=== PATIENT | female | born 1995 | race Caucasian/White ===

== ENCOUNTER 2020-04-10 11:22 | Outpatient (REF) | payer MEDICARE, MEDICAID, SELFPAY ==
[2020-04-11 12:32] LABS: BV Int Neg Control Negative (Negative); BV Int Pos Control Positive (Positive)
== END 2020-04-10 11:23 | disposition home or self-care (01) ==
LOC: HO.LNP 11:22
PROVIDERS: Visit Provider Obstetrics & Gynecology
DX: Z01.411 Encounter for gynecological examination (general) (routine) with abnormal findings (principal); N76.0 Acute vaginitis
CPT/HCPCS: 87480; 87510; 87660; 99203; 99204

== ENCOUNTER → 2020-07-07 14:51 | Outpatient (BNVA) | payer MEDICARE, MEDICAID, SELFPAY | PROVIDERS: PCP Physician Assistant Medical; Visit Provider Obstetrics & Gynecology | DX: Z30.42 Encounter for surveillance of injectable contraceptive (principal) | CPT/HCPCS: 96372; J1050 ==

== ENCOUNTER → 2020-09-23 14:48 | Outpatient (BNVA) | payer MEDICARE, MEDICAID, SELFPAY | PROVIDERS: PCP Nurse Practitioner Family; Visit Provider Advanced Practice Midwife | DX: Z13.89 Encounter for screening for other disorder (principal) | CPT/HCPCS: 99212 ==

== ENCOUNTER → 2020-12-09 15:09 | Outpatient (BNVA) | payer MEDICARE, MEDICAID, SELFPAY | PROVIDERS: PCP Nurse Practitioner Family; Visit Provider Advanced Practice Midwife | DX: Z30.42 Encounter for surveillance of injectable contraceptive (principal); Z13.29 Encounter for screening for other suspected endocrine disorder; Z13.1 Encounter for screening for diabetes mellitus; G43.009 Migraine without aura, not intractable, without status migrainosus; I10 Essential (primary) hypertension; F17.200 Nicotine dependence, unspecified, uncomplicated | CPT/HCPCS: 96372; 99211 ==

== ENCOUNTER 2021-02-20 08:01 | Outpatient (REF) | payer MEDICARE, MEDICAID, SELFPAY ==
[2021-02-20 08:59] LABS: Hematocrit 39.6 % (37-47); Hemoglobin 13.2 g/dl (12.0-16.0); Mean Corpuscular HGB Conc 33.3 g/dl (31.0-35.0); Mean Corpuscular Hemoglobin 30.9 pg (27.0-33.0); Mean Corpuscular Volume 92.7 fL (80-98); Mean Platelet Volume 10.3 fL (9.4-12.3); Platelet Count 300 X10*3/uL (160-400); Red Blood Count 4.27 X10*6/uL (4.20-5.50); Red Cell Distribution Width 13.4 % (11.0-16.0); White Blood Count 8.2 X10*3/uL (4.8-10.8)
[2021-02-20 09:20] LABS: Estimated Average Glucose 100 mg/dL; Hemoglobin A1c % 5.1 %
[2021-02-20 09:26] LABS: Alanine Aminotransferase 17 U/L (0-31); Albumin Level 4.3 g/dL (3.5-5.0); Alkaline Phosphatase 97 U/L (39-117); Anion Gap 13 (12-20); Aspartate Amino Transferase 12 U/L (5-31); Bilirubin Total 0.4 mg/dL (0.0-1.0); Blood Urea Nitrogen 13 mg/dL (9-16); Calcium 9.7 mg/dL (8.4-10.2); Carbon Dioxide 22 mmol/L (22-29); Chloride 111 mmol/L (96-108); Estimated Glomerular Filt Rate > 60; Glucose Fasting 84 mg/dL (60-99); Potassium 4.7 mmol/L (3.3-5.1); Sodium 141 mmol/L (135-145); Total Protein 6.9 g/dL (6.5-8.0)
[2021-02-20 09:50] LABS: TSH reflex Free T4 1.12 uIU/mL (0.32-4.0)
== END 2021-02-20 08:02 | disposition home or self-care (01) ==
LOC: HO.LAB 08:01
PROVIDERS: PCP Physician Assistant; Visit Provider Physician Assistant
DX: I10 Essential (primary) hypertension (principal); Z13.29 Encounter for screening for other suspected endocrine disorder; Z13.1 Encounter for screening for diabetes mellitus; F17.200 Nicotine dependence, unspecified, uncomplicated
CPT/HCPCS: 36415; 80053; 83036; 84443; 85027

== ENCOUNTER → 2021-03-02 14:36 | Outpatient (BNVA) | payer MEDICARE, MEDICAID, SELFPAY | PROVIDERS: PCP Physician Assistant; Visit Provider Advanced Practice Midwife | DX: Z30.41 Encounter for surveillance of contraceptive pills (principal) | CPT/HCPCS: 96372; 99211 ==

== ENCOUNTER → 2021-05-25 15:06 | Outpatient (BNVA) | payer MEDICARE, MEDICAID, SELFPAY | PROVIDERS: PCP Physician Assistant; Visit Provider Advanced Practice Midwife | DX: Z30.42 Encounter for surveillance of injectable contraceptive (principal) | CPT/HCPCS: 96372; 99211 ==

== ENCOUNTER 2021-06-25 15:00 | Outpatient (REF) | payer MEDICARE, MEDICAID, SELFPAY ==
[2021-06-27 11:40] LABS: CT PCR NOT DETECTED (Not Detect.); NG PCR NOT DETECTED (Not Detect.)
== END 2021-06-25 15:01 | disposition home or self-care (01) ==
LOC: HO.LAB 15:00
PROVIDERS: Visit Provider Advanced Practice Midwife
DX: Z01.419 Encounter for gynecological examination (general) (routine) without abnormal findings (principal); Z20.2 Contact with and (suspected) exposure to infections with a predominantly sexual mode of transmission; F17.200 Nicotine dependence, unspecified, uncomplicated; Z71.6 Tobacco abuse counseling
CPT/HCPCS: 87491; 87591; 88142

== ENCOUNTER → 2021-08-17 14:57 | Outpatient (BNVA) | payer MEDICARE, MEDICAID, SELFPAY | PROVIDERS: Visit Provider Advanced Practice Midwife | DX: Z30.42 Encounter for surveillance of injectable contraceptive (principal) | CPT/HCPCS: 96372; 99211 ==

== ENCOUNTER → 2021-11-08 14:57 | Outpatient (BNVA) | payer MEDICARE, MEDICAID, SELFPAY | PROVIDERS: PCP Physician Assistant; Visit Provider Advanced Practice Midwife | DX: Z30.42 Encounter for surveillance of injectable contraceptive (principal) | CPT/HCPCS: 96372; 99211 ==

== ENCOUNTER → 2022-01-31 15:03 | Outpatient (BNVA) | payer MEDICARE, MEDICAID, SELFPAY | PROVIDERS: PCP Physician Assistant; Visit Provider Advanced Practice Midwife | DX: Z30.42 Encounter for surveillance of injectable contraceptive (principal) | CPT/HCPCS: 96372; 99211 ==

== ENCOUNTER → 2022-04-29 14:51 | Outpatient (BNVA) | payer MEDICARE, MEDICAID, SELFPAY | PROVIDERS: PCP Physician Assistant; Visit Provider Advanced Practice Midwife | DX: Z30.42 Encounter for surveillance of injectable contraceptive (principal) | CPT/HCPCS: 96372; 99211 ==

== ENCOUNTER → 2022-07-27 14:42 | Outpatient (BNVA) | payer MEDICARE, MEDICAID, SELFPAY | PROVIDERS: PCP Physician Assistant; Visit Provider Advanced Practice Midwife | DX: Z30.42 Encounter for surveillance of injectable contraceptive (principal) | CPT/HCPCS: 96372; 99211 ==

== ENCOUNTER → 2022-10-26 14:55 | Outpatient (BNVA) | payer MEDICARE, MEDICAID, SELFPAY | PROVIDERS: PCP Physician Assistant; Visit Provider Advanced Practice Midwife | DX: Z30.09 Encounter for other general counseling and advice on contraception (principal); Z72.0 Tobacco use | CPT/HCPCS: 99212 ==

== ENCOUNTER 2023-03-29 11:14 | Outpatient (AMB) | payer MEDICARE, MEDICAID, SELFPAY ==
--- NOTE | 2023-03-29 11:16 | A.OFFVIS_ITS ---
Intake Vital Signs 03/29/23 11:17 Height 5 ft 9 in Weight 241 lb BMI 35.6 BP 122/80 Intake Visit Reasons: Control Consult Intake Note: The patient agreed to use of a medical office asst during this encounter. Scribed for NELLY Mobley by Eda Lujan, medical office asst, on 03/29/2023 at 11:30 am EST. Accompanied by: Other Relationship Allergies No Known Drug Allergies Allergy (Unknown, Verified 03/29/23 11:20) Unknown HPI HPI Comments History of Present Illness Details She is here for BC surveillance with Slime, her adult foster mother. Reports she is doing well on Velvet, was late for her follow up appointment and needed a refill. She denies any contraindications to control such as: migraines with aura, history of DVT or pulmonary emboli, high blood pressure, liver disease, thrombolic disorders, Lupus, +ARIEL, or smoking. Reports migraines with out aura; states generic pain relievers does not work but uses Rx.Recently in the ED for a migraine attack. [facility] Medical History (Updated 03/29/23 @ 11:44 by Eda Lujan) Migraine without aura Annual physical exam Insomnia due to mental condition History of recurrent UTIs Bipolar disorder ADHD Surgical History Hx of tooth extraction Family History Father No problems noted. Mother Breast cancer Diabetes Social History Alcohol intake: current Alcohol intake frequency: holidays/special occasions only Patient Tobacco Use Status: Current everyday Tobacco user Tobacco use type: Cigarette Cigarettes Per Day: 3.5 Years Smoked: 5 e-Cigarette/Vaping Use: Never Used Current occupational status: employed Current occupation: [employer]- Female Reproductive History Menstrual Age of Menarche: 13 Physical Exam Vital Signs: Last Vital Signs BP 122/80 03/29/23 11:17 BMI result Body Mass Index 35.6 Const General: cooperative, healthy appearing, comfortable, no acute distress, well developed, alert and awake Assessment & Plan Assessment & Plan (1) Contraceptive surveillance: Code(s): Z30.40 - Encounter for surveillance of contraceptives, unspecified Plan: Discussed: Reviewed use, side effects and warning of OCP, including ACHES. Continue Velvet. Rx for Velvet sent to pharmacy. Encouraged to always use condoms for back up method and STD prevention. She was instructed to go to ER if she develops loss of vision, severe headache that does not resolve, chest pain, difficulty breathing, abdominal pain, or pain or tenderness in extremity. Call the office with any concerns. All of her questions and concerns were addressed to the best of my ability and shared decision making. She is agreeable to plan of care. Return in 3-4 months for pill check/AG. (2) Migraine without aura: Code(s): G43.009 - Migraine without aura, not intractable, without status migrainosus Medications: Refilled norethindrone (contraceptive) (Velvet) 0.35 mg PO DAILY 84 tabs 1RF Coding Level of Care Code Est Pt Level 3 (57368) Diagnoses control counseling Z30.09 Migraine without aura G43.009
[2023-03-29 11:17] VITALS: BP 122/80; BMI 35.6
== END 2023-03-29 11:43 | disposition home or self-care (01) ==
PROVIDERS: PCP Physician Assistant; Visit Provider Advanced Practice Midwife
DX: Z30.09 Encounter for other general counseling and advice on contraception (principal); G43.009 Migraine without aura, not intractable, without status migrainosus
CPT/HCPCS: 99213

== ENCOUNTER → 2023-03-29 11:14 | Outpatient (BNVA) | payer MEDICARE, MEDICAID, SELFPAY | PROVIDERS: PCP Physician Assistant; Visit Provider Advanced Practice Midwife | DX: Z30.09 Encounter for other general counseling and advice on contraception (principal); G43.009 Migraine without aura, not intractable, without status migrainosus | CPT/HCPCS: 99212 ==

== ENCOUNTER 2023-05-04 15:49 | Outpatient (AMB) | payer MEDICARE, MEDICAID, SELFPAY ==
--- NOTE | 2023-05-04 15:50 | A.OFFPC_ITS ---
Vital Signs 05/04/23 15:52 Height 5 ft 9 in Weight 230 lb 4 oz BMI 34.0 BP 132/70 Blood Pressure Location Rt brachial Position Sitting Pulse 98 Pulse Source Pulse Oximeter Pulse Oximetry (%) 96 Oxygen Delivery Method Room Air Intake Visit Reasons: Annual physical Intake Note: Patient is here today for a physical. Automatic Grinding Machine Operator Required: No Helpdesk Specialist: Present Accompanied by: Mother Allergies No Known Drug Allergies Allergy (Unknown, Verified 05/04/23 16:13) Unknown Medication List - Last Reconciled 05/04/23 by Christian Patiño PA-C acetaminophen 325 mg PO QID PRN fhvobfu-meapxjyrlxryx-kivraltp 250-250-65 mg (Pain Reliever Plus) 1 tab PO Q4-6H PRN 5 days yzkgkudnhm-fladgdkyfyqxa-tpdw 50-325-40 mg 1 tab PO Q6H PRN 2 days citalopram (Celexa) 40 mg PO DAILY clonidine HCl 0.1 mg PO DAILY PRN dextroamphetamine-amphetamine 15 mg (Adderall) 20 mg PO DAILY diphenhydramine HCl (Banophen) 25 mg PO DIRECTED 90 days fluticasone propionate 50 mcg/actuation (Flonase Allergy Relief) 1 spray intranasal DAILY 30 days hydroxyzine HCl 50 mg PO ONCE ipratropium bromide 2 sprays intranasal BID 15 days loratadine 10 mg PO DAILY 90 days melatonin 5 mg PO DAILY norethindrone (contraceptive) (Velvet) 0.35 mg PO DAILY promethazine 25 mg PO BID PRN 5 days riboflavin (vitamin B2) (Vitamin B-2) 100 mg PO DAILY 90 days sumatriptan succinate 50 mg PO ONCE PRN 10 days trazodone 25 mg PO BEDTIME Tobacco use date assessed: 05/04/23 Dental Screening Dental Screen Date: 05/04/23 Did you have a dental visit in the last 12 months?: Yes Did you have a dental problem in the last 6 months where you did not have access to dental care?: No Was dental information given to patient?: Patient has dentist HPI Annual physical HPI Details Patient is a 27-year-old female here today for PE.? Patient has past medical history significant for anxiety depression, obesity, allergic rhinitis,migraines, ADHD, Bipolar disorder,? asthma. . Allergies:? Has been fairly well controlled with use Benadryl nightly.? She reports she still has nasal congestion itchy eyes at times.. .. Asthma: Has been well controlled with only p.r.n. use of her albuterol inhaler. Has been controlling her allergies. She denies any nighttime awakenings with asthma symptoms are recent asthma exacerbations. .. Bipolar disorder, ADHD:? Patient is followed by mental therapist and a psychiatrist who prescribes her mental health medications.? Continues on stimulant ADHD medication and seem still hyperactive. She is considering changing her psychiatrist as they will increase stimulant medication. Smoker: Patient does understand she needs to quit smoking and has been reducing her smoking now only smokes 3 cigarettes per day. Offer nicotine replacement though she declines my offers. .. Obesity: HAS LOST A SIGNIFICANT AMOUNT OF WEIGHT SINCE LAST VISIT BY BEING MORE PHYSICALLY ACTIVE AND REDUCING SUGAR IN HER DIET. Also now off of Depo injections ... Migraines: She reports her migraines are still evident and has 1 bad migraine a month. She does use Fioricet which she has found to be very helpful. Imitrex was not so helpful. Cell Tender Helper: Patient is followed by Executive Creative Director and has gotten Pap. Vaccine: Up-to-date with flu, UTD with COVID vaccine , up-to-date with Tdap, needs pneumonia vaccine PFSH Medical History Migraine without aura Annual physical exam Insomnia due to mental condition History of recurrent UTIs Bipolar disorder ADHD Surgical History Hx of tooth extraction Family History Father No problems noted. 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 needs: No Hearing needs: No Vision needs: Yes (Glasses) Female Reproductive History Menstrual Age of Menarche: 13 Questionnaire PHQ-9 Over the last 2 weeks, how often have you been bothered by any of the following problems? 1. Little interest or pleasure in doing things: not at all 2. Feeling down, depressed, or hopeless: not at all 3. Trouble falling or staying asleep, or sleeping too much: not at all 4. Feeling tired or having little energy: not at all 5. Poor appetite or overeating: not at all 6. Feeling bad about yourself - or that you are a failure or have let yourself or your family down: not at all 7. Trouble concentrating on things, such as reading the newspaper or watching television: not at all 8. Moving or speaking so slowly that other people could have noticed. Or the opposite - being so fidgety or restless that you have been moving around a lot more than usual: not at all 9. Thoughts that you would be better off or of hurting yourself in some way: not at all Total score: 0 Depression Screening Interpretation: Negative Depression Screening Done: Yes 21040 - PHQ-9 Billing: Yes Source: Developed by Drs. Leland Marcos, Ginger Smallwood, Cameron Fontanez and colleagues, with an educational shahnaz from [employer]. Thrive Questionnaire Date Thrive assessed: 05/04/23 I am a: Patient What is your living situation today?: I have a steady place to live Within the past 12 months, did the food you bought not last and you didn't have the money to get more?: Never true Within the past 12 months, did you worry whether your food would run out before you got money to buy more?: Never true Do you have trouble paying for medicines?: No Do you have trouble getting transportation to medical appointments?: No Do you have trouble paying your heating and electricity bill?: No Do you have trouble taking care of your child, family member or friend?: No Do you have trouble with day-to-day activities such as bathing, preparing meals, shopping, managing finances, etc.?: No Are you currently unemployed and looking for a job?: No Are you interested in more education?: No Currently or been in a relationship where the following occur: no concerns reported AUDIT C Alcohol Use Questionnaire (AUDIT-C) 1. How often do you have a drink containing alcohol?: Monthly or less 2. How many drinks containing alcohol do you have on a typical day when you are drinking?: 1 or 2 Total Score: 1 JYOTI-7 AMB Questionnaire JYOTI-7 Date JYOTI - 7 assessed: 05/04/23 Feeling nervous, anxious, or on edge: 0 = Not at all Not being able to stop or control worryin = Not at all Worrying too much about different things: 0 = Not at all Trouble relaxin = Not at all Being so restless that it is hard to sit still: 0 = Not at all Becoming easily annoyed or irritable: 0 = Not at all Feeling afraid as if something awful might happen: 0 = Not at all Total JYOTI-7 score (0-4 normal; 5-9 mild; 10-14 moderate; 15-21 severe): 0 Source: Developed by Drs. Leland Marcos, Ginger Smallwood, Cameron Fontanez and colleagues, with an educational shahnaz from [employer]. JYOTI-7 Assessment Billing JYOTI-7 Assessment Tool: JYOTI-7 Assessment 90510 Review of Systems Const Denies body aches, Denies chills, Denies excessive sweating, Denies fatigue, Denies fever(s) and Reports headache(s) Eyes Denies blurry vision ENT Denies dysphagia, Denies vertigo, Denies dizziness, Reports headache(s), Denies hearing loss and Denies tinnitus Card Denies chest pain, Denies chest pain with activity, Denies syncope, Denies irregular heart rhythm and Denies dyspnea Resp Denies chest congestion, Denies cough, Denies hemoptysis, Denies dyspnea and Denies wheezing GI Denies abdominal pain, Denies melena, Denies hematochezia, Denies coffee ground emesis, Denies dysphagia, Denies diarrhea, Denies nausea and Denies vomiting Denies urinary frequency, Denies dysuria, Denies urinary hesitancy and Denies urinary urgency Musc Denies arthralgias, Denies limited range of motion, Denies muscle cramps and Denies muscle weakness Skin/Breast Denies rash and Denies skin ulcer Neuro Denies Abnormal speech present, Denies confusion, Denies vertigo, Denies dizziness, Denies syncope, Reports headache(s), Denies memory loss and Denies seizure-like activity Psych Denies anxiety, Denies confusion, Denies depression, Denies memory loss, Denies panic attacks and Denies paranoia Endo Denies excessive sweating, Denies fatigue, Denies flushing, Denies polydipsia and Denies polyuria Aller/Immun Denies wheezing Physical exam (Primary Care) Vital Signs: Last Vital Signs Pulse 98 05/04/23 15:52 BP 132/70 05/04/23 15:52 Pulse Ox 96 05/04/23 15:52 Oxygen Delivery Method Room Air 05/04/23 15:52 BMI result Body Mass Index 34.0 BMI Assessment/Plan discussion: High Tobacco/Smoking Status: Tobacco use Status Tobacco use date assessed 05/04/23 05/04/23 16:01 Patient Tobacco Use Status Current everyday Tobacco 05/04/23 16:23 Tobacco use type Cigarette 05/04/23 16:23 e-Cigarette/Vaping Use Never Used 05/04/23 16:23 Are you ready to quit: No Tobacco cessation counseling provided: Yes Items discussed: Nicotine replacement and QuitWorks Relapse Prevention: discussed the importance of a supportive environment, weight gain after smoking is common and discussed dietary, exercise and/or lifestyle changes Number of minutes spent counselin CPT code: 86707 - 4-10 Minutes PHQ-9: PHQ-9 Score PHQ-9: Total score 0 05/04/23 16:41 Depression Screening Interpretation: Negative Thrive Assessment: Date of Thrive Assessment Date Thrive assessed 05/04/23 05/04/23 16:01 Currently or been in a relationship where the following occur: no concerns reported Const Other: OBESE General: cooperative, comfortable, no acute distress, alert and awake; No confusion Orientation/consciousness: oriented to person, oriented to place, patient oriented x3 and No confusion HENMT Head: Yes normocephalic Ears: external ears normal and TM's normal bilaterally Face and sinus: No sinus tenderness Mouth: Normal oral and palatal mucosa present and tongue normal Teeth and gingiva: dentition normal and gingiva normal Throat: Yes posterior oropharynx normal, Yes tonsils normal and Yes uvula midline Eyes Conjunctivae: conjunctivae normal Sclerae: sclerae normal Pupils: Equal, round and reactive pupils present EOM: EOMs intact bilaterally Direct Ophthalmoscopy: No no photophobia Neck Neck: Yes no lymphadenopathy, No tender and Yes no JVD Thyroid: Thyroid normal Carotids: no bruits Chest Chest palpation & inspection: no tenderness Resp Effort & Inspection: normal respiratory effort, no audible wheezes, not labored and no stridor Auscultation: no crackles, no rales, no rhonchi and no wheezes Cardio Jugular venous distension: no JVD Rate: regular rate, not bradycardic and not tachycardic Rhythm: regular rhythm Bruits: no carotid bruits Peripheral pulses: Peripheral pulses 2+ throughout GI Inspection: Yes normal to inspection, No abdominal wall ecchymosis and No visible herniation Palpation (GI): Soft to palpation, nontender, no guarding, not rigid and No hepatosplenomegaly present Auscultation: normoactive bowel sounds General: Yes no CVA tenderness Back/Spine/Pelvis Back: no CVA tenderness and No back tenderness Cervical Spine: cervical ROM normal Thoracic/Lumbar Spine: thoracic and lumbar spine normal to inspection, straight leg raise negative bilaterally, No thoraco-lumbar ROM limited and No lumbar spinal tenderness Skin Lesions: no lesions Rashes: no rashes Wounds: no wounds Neuro General: oriented to person, oriented to place, patient oriented x3, CN's II-XI intact bilaterally and No confusion Cranial nerves: Yes Equal, round and reactive pupils present and Yes Normal accommodation reflex present Cognition (Neuro): normal cognition Speech: No Abnormal speech present Gait exam (Neuro): Normal gait present Motor exam (neuro): 5/5 motor strength present throughout Extrem Right upper extremity: full ROM; no cyanosis Left upper extremity: full ROM; no cyanosis Right lower extremity: no edema Left lower extremity: no edema Psych Appearance: grossly normal Mental Status: mental status grossly normal Affect: normal affect Attitude: cooperative Thought process: Normal thought process present Office Procedures Flu Questionnaire Does the patient have a severe egg allergy?: No Does the patient have severe life threatening allergies?: No Does the patient have a fever or illness today?: No Has the patient ever had Guillain-[place] Syndrome?: No Has the patient ever had any past reaction to a flu shot?: No Immunizations flu vacc [id number] 6mos up(PF) 60 mcg(15 mcgx4)/0.5 mL IM syringe Performing Provider: Christian Patiño PA-C Performing Location: [facility] Administered by: JANET Johnson on 05/04/23 16:02 Dose Route Admin Location Dispensed Lot Number Expiration Date NDC Route Delivery Supervisor 0.5 mL IM Left Deltoid 0.5 mL [id number] 01/07/24 58615-993-05 GSK-ID BIOMEDZentyal VIS Given Date VIS Provided VIS Publication Date 05/04/23 Single Vaccine 21 Eligibility Eligibility Date Funding Source Not VFC Eligible 05/04/23 Private pneumoc 20-paul conj-dip cr(PF) 0.5 mL IM syringe Performing Provider: Christian Patiño PA-C Performing Location: [facility] Administered by: JANET Leonard on 05/04/23 16:41 Dose Route Admin Location Dispensed Lot Number Expiration Date ND Route Delivery Supervisor 0.5 mL IM Left Deltoid 0.5 mL [id number] 02/06/24 5224-3101-04 WYETH/PFIZER VIS Given Date VIS Provided VIS Publication Date 05/04/23 Single Vaccine 21 Eligibility Eligibility Date Funding Source Not VFC Eligible 05/04/23 Private Assessment and Plan Assessment & Plan (1) Annual physical exam: Code(s): Z00.00 - Encounter for general adult medical examination without abnormal findings (2) Annual physical exam: Code(s): Z00.00 - Encounter for general adult medical examination without abnormal findings (3) ADHD: Code(s): F90.9 - Attention-deficit hyperactivity disorder, unspecified type Qualifiers: Attention deficit-hyperactivity disorder type: unspecified Qualified Code(s): F90.9 - Attention-deficit hyperactivity disorder, unspecified type Plan: Patient currently living in foster care. Here today with her new foster mother. She has a long history of mental health disorders including bipolar disorder and ADHD. Is seeing new psychiatrist whom is managing her mental health medications. (4) Smoker: Code(s): F17.200 - Nicotine dependence, unspecified, uncomplicated Plan: Pain patient does understand she needs to quit smoking and will like to continue reducing her cigarettes on her own. Declining offers to start nicotine replacement therapy (5) Obese: Code(s): E66.9 - Obesity, unspecified Qualifiers: Body mass index: BMI 31.0-31.9 Obesity classification: adult class 1 (BMI 30 - 34.9) Obesity type: due to excess calories Serious obesity comorbidity presence: without serious comorbidity Qualified Code(s): E66.09 - Other obesity due to excess calories; Z68.31 - Body mass index [BMI] 31.0-31.9, adult Plan: Patient does understand her BMI is above 30 will continue to work on lifestyle to reduce her weight. (6) Migraine without aura: Code(s): G43.009 - Migraine without aura, not intractable, without status migrainosus Qualifiers: Intractability: not intractable Status migrainosus presence: without status migrainosus Qualified Code(s): G43.009 - Migraine without aura, not intractable, without status migrainosus Plan: She reports having frequent mild headaches. She does report 1 major migraine a month. She reports that Fioricet is helpful. Imitrex not helpful She would like to see a neurologist for possible evaluation on injectable therapy. Orders: Orders Comprehensive [place]. Panel Fast 05/04/23 Z13.1 - Encounter for screening for diabetes mellitus Complete Blood Count no Diff 05/04/23 Z13.1 - Encounter for screening for diabetes mellitus Pneumococcal 20 Immunization 05/04/23 G43.009 - Migraine without aura, not intractable, without status migrainosus, Z23 - Encounter for immunization Influenza [id number] Immunization 05/04/23 Z23 - Encounter for immunization Referrals Neurology Referral G43.009 - Migraine without aura, not intractable, without status migrainosus Medications: Changed From qrvgoorynt-rzvgeaschiqgu-onwa 50-325-40 mg 1 tab PO Q6H 2 days PRN 8 tabs 0RF pain G43.009 - Migraine without aura, not intractable, without status migrainosus To vhlbgcwqdk-tejppmlcsgcdr-jjxw 50-325-40 mg 1 tab PO Q6H PRN 20 tabs 0RF pain 5 days G43.009 - Migraine without aura, not intractable, without status migraino kilo Discontinued uawodes-hcsgqbuiliajf-bdnehxai 250-250-65 mg (Pain Reliever Plus) Discontinued Reason: Doctor's Order 1 tab PO Q4-6H 5 days PRN 30 tabs 1RF pain G43.009 - Migraine without aura, not intractable, without status migrainosus sumatriptan succinate Discontinued Reason: Doctor's Order 50 mg PO ONCE 10 days PRN 10 tabs 0RF migraine headache G43.009 - Migraine without aura, not intractable, without status migrainosus Coding Level of Care Code Est Pt Prev Care 18-39y(36543) Diagnoses Annual physical exam Z00.00 Attention deficit hyperactivity disorder (ADHD), unspecified ADHD type F90.9 Attention deficit-hyperactivity disorder type: unspecified Smoker F17.200 Class 1 obesity due to excess calories without serious comorbidity with body mass index (BMI) of 31.0 to 31.9 in adult E66.09; Z68.31 Body mass index: BMI 31.0-31.9 Obesity classification: adult class 1 (BMI 30 - 34.9) Obesity type: due to excess calories Serious obesity comorbidity presence: without serious comorbidity Migraine without aura and without status migrainosus, not intractable G43.009 Intractability: not intractable Status migrainosus presence: without status migrainosus Additional Codes Vital Signs *Quality* - CPT code: 62714 - 4-10 Minutes ([id number]) JYOTI-7 Assessment Billing - JYOTI-7 Assessment Tool: JYOTI-7 Assessment 13590 ([id number])
[2023-05-04 15:52] VITALS: BP 132/70; PULSE 98; O2SAT 96; BMI 34.0
== END 2023-05-04 16:42 | disposition home or self-care (01) ==
PROVIDERS: Visit Provider Physician Assistant
DX: Z23 Encounter for immunization (principal); G43.009 Migraine without aura, not intractable, without status migrainosus
CPT/HCPCS: 90471; 90677; 90686; 99395

== ENCOUNTER 2023-07-20 10:06 | Outpatient (REF) | payer MEDICARE, MEDICAID, SELFPAY | END 2023-07-20 10:07 | disposition home or self-care (01) | LOC: HO.LNP 10:06 | PROVIDERS: PCP Physician Assistant; Visit Provider Advanced Practice Midwife | DX: Z13.89 Encounter for screening for other disorder (principal) | CPT/HCPCS: 88142 ==

== ENCOUNTER 2023-07-20 10:06 | Outpatient (AMB) | payer MEDICARE, MEDICAID, SELFPAY ==
--- NOTE | 2023-07-20 10:09 | MHC.OFFVIS ---
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 Dishing Machine Operator Required: No Information Interpreted: non-clinical & clinical Investigative Research Specialist: Investigative Research Specialist Present (Jose Luis) Allergies No Known Drug Allergies Allergy (Unknown, Verified 07/20/23 10:20) Unknown Is last menstrual period known: Yes Last menstrual period: 06/30/23 Post menopausal: No HPI HPI Comments History of Present Illness Details She is a premenopausal woman presenting for annual examination. Doing well with no concerns. Doing well on Velvet. She tries to eat healthy and stays active with exercise. Currently is sexually active. She denies vaginal itching and irritation. STI screening offered; she accepts. She denies any contraindications to control such as: migraines with aura, history of DVT or pulmonary emboli, high blood pressure, liver disease, thrombolic disorders, Lupus, +ARIEL, breast cancer, or smoking. Denies family history of ovarian or colon cancer. FH-breast cancer, mother. Last pap smear 2020, negative. [facility] Medical History Migraine without aura Annual physical exam Insomnia due to mental condition History of recurrent UTIs Bipolar disorder ADHD Surgical History Hx of tooth extraction Family History Father No problems noted. 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 needs: No Hearing needs: No Vision needs: Yes (Glasses) Female Reproductive History Menstrual Age of Menarche: 13 Duration of menses: 3-5 days Date of last menstrual period: 06/30/23 control method: pills Total pregnancies: 0 Date of last pap smear: 06/28/21 (negative) Review of Systems Const All systems reviewed & are unremarkable except as noted in HPI and below Reports as per HPI Eyes Reports no additional complaints ENT Reports no additional complaints Card Reports no additional complaints Resp Reports no additional complaints GI Reports as per HPI and Reports no additional complaints Reports as per HPI Musc Reports no additional complaints Skin/Breast Reports as per HPI Neuro Reports no additional complaints Psych Reports no additional complaints Endo Reports no additional complaints Oziel/Lymph Reports no additional complaints Aller/Immun Reports no additional complaints Physical Exam Vital Signs: Last Vital Signs BP 114/64 07/20/23 10:12 BMI result Body Mass Index 32.2 Const General: cooperative, healthy appearing, no acute distress, well developed and alert Orientation/consciousness: patient oriented x3 HEENT Head: Yes normal to inspection Eyes General: appearance normal, both eyes and all related structures Neck Neck: Yes normal visual inspection Thyroid: Thyroid normal Chest Chest palpation & inspection: normal inspection of the chest and other (no puckering, dimpling, peau de orange, retraction, discharge, masses) Breast/axilla inspection: normal inspection of the breasts Breast/axilla palpation: normal palpation of the breasts Resp Effort & Inspection: normal respiratory effort GI Inspection: Yes normal to inspection Palpation (GI): Soft to palpation Rectal Exam - Female: deferred General: Yes bladder normal to palpation External Female Exam: normal external appearance and normal appearance of the urethra Speculum Exam - Vagina: normal appearance of the vagina, normal palpation and normal vaginal discharge Speculum Exam - Cervix: normal appearance of the cervix and normal palpation Bimanual exam- vagina & uterus: normal bimanual exam, normal palpation, uterine size normal, bladder normal to palpation, normal palpation and non-tender Bimanual Exam- Adnexa, other: no masses Skin General skin exam: no rashes or lesions noted Rashes: no rashes Neuro General: patient oriented x3 Cognition (Neuro): normal cognition Extrem General: Yes normal to inspection Psych Attitude: cooperative Thought process: Normal thought process present Assessment & Plan Assessment & Plan (1) Encounter for well woman exam with routine gynecological exam: Code(s): Z01.419 - Encounter for gynecological examination (general) (routine) without abnormal findings Plan Discussed: Current recommendations for pap smears per ASCCP guidelines. Breast awareness and periodic breast exams. Maintain a healthy lifestyle including a well balanced diet and routine exercise. Use condoms for STI and prevention. control hormone use warnings: go to ER if and loss of vision, blindness, severe headache, chest pain or difficulty breathing, severe abdominal pain, or any pain or swelling in an extremity. All of her questions and concerns were addressed to the best of my ability. RTO in one year for annual automotive project engineer examination. This note is constructed using voice recognition software. While every effort has been made to ensure accuracy, folder tier errors may have been included. Orders: Orders Hepatitis C Antibody Today Z20.2 - Contact with and (suspected) exposure to infections with a predominantly sexual mode of transmission Syphilis Screen Today Z20.2 - Contact with and (suspected) exposure to infections with a predominantly sexual mode of transmission HIV Ab/Ag Today Z20.2 - Contact with and (suspected) exposure to infections with a predominantly sexual mode of transmission Hepatitis B Core Antibody Today Z20.2 - Contact with and (suspected) exposure to infections with a predominantly sexual mode of transmission Medications: Refilled norethindrone (contraceptive) (Velvet) 0.35 mg PO DAILY 84 tabs 4RF Coding Level of Care Code Est Pt Prev Care 18-39y(21695) Diagnoses Encounter for well woman exam with routine gynecological exam Z01.419
[2023-07-20 10:12] VITALS: BP 114/64; BMI 32.2
== END 2023-07-20 10:43 | disposition home or self-care (01) ==
LOC: HO.HWS 10:06
PROVIDERS: PCP Physician Assistant; Visit Provider Advanced Practice Midwife
DX: Z01.419 Encounter for gynecological examination (general) (routine) without abnormal findings (principal)
CPT/HCPCS: G0101

== ENCOUNTER 2023-07-20 10:56 | Outpatient (REF) | payer MEDICARE, MEDICAID, SELFPAY ==
[2023-07-20 13:03] LABS: HBc Num1 0.04 S/CO (0.00-0.79); HIV AB/AG Nonreactive (Nonreactive); HIV Num 1 0.97 S/CO (0.00-0.99); Hepatitis B Core Antibody Nonreactive (Nonreactive); Syphilis Screen Nonreactive (Nonreactive); ~HepC Num1 0.08 S/CO (0.00-0.79); ~Hepatitis C Antibody Nonreactive (Nonreactive)
[2023-07-20 15:38] LABS: CT PCR NOT DETECTED (Not Detect.); NG PCR NOT DETECTED (Not Detect.)
== END 2023-07-20 10:57 | disposition home or self-care (01) ==
LOC: HO.LAB 10:56
PROVIDERS: PCP Physician Assistant; Visit Provider Advanced Practice Midwife
DX: Z20.2 Contact with and (suspected) exposure to infections with a predominantly sexual mode of transmission (principal); Z12.4 Encounter for screening for malignant neoplasm of cervix
CPT/HCPCS: 0353U; 86704; 86780; 86803; 87389; 88142; G0101

== ENCOUNTER 2023-09-08 15:24 | Outpatient (AMB) | payer MEDICARE, MEDICAID, SELFPAY ==
[2023-09-08 15:28] VITALS: BMI 32.2
--- NOTE | 2023-09-08 15:28 | A.OFFVIS_ITS ---
Intake Vital Signs 09/08/23 15:28 Height 5 ft 9 in Weight 218 lb BMI 32.2 Intake Visit Reasons: BC consult Auto Cleaner Required: No Information Interpreted: non-clinical & clinical Client Experience Specialist: Client Experience Specialist Present Accompanied by: Self / Same As Patient Allergies No Known Drug Allergies Allergy (Unknown, Verified 09/08/23 15:39) Unknown Is last menstrual period known: Yes Last menstrual period: 08/29/23 Post menopausal: No Patient : No HPI HPI Comments History of Present Illness Details Patient is here today for control consult. She is currently on Dumas and is using condoms. She wants something more reliable and she did her research and decided the product she wanted was Nexplanon. [facility] Medical History Migraine without aura Annual physical exam Insomnia due to mental condition History of recurrent UTIs Bipolar disorder ADHD Surgical History Hx of tooth extraction Family History Father No problems noted. 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 Hearing needs: No Vision needs: Yes (Glasses) Female Reproductive History Menstrual Age of Menarche: 13 Date of last menstrual period: 08/29/23 Review of Systems Const All systems reviewed & are unremarkable except as noted in HPI and below Endo Reports no additional complaints Physical Exam Vital Signs: BMI result Body Mass Index 32.2 Const General: cooperative, healthy appearing and no acute distress Psych Appearance: well kempt Attitude: cooperative Thought process: Normal thought process present Results AMB Test Urine AMB Test Urine Negative Last Edit by Shelli Graves MA on 09/08/23 15:45 Results Reviewed Results Reviewed: Laboratory Last Values [facility]st Clinic Negative 09/08/23 15:44 Assessment & Plan Assessment & Plan (1) Counseling for initiation of control method: Code(s): Z30.09 - Encounter for other general counseling and advice on contraception Plan Nexplanon side effects reviewed, discuss there is a potential for weight gain and other side effects. Advised no unprotected intimacy use condoms. Device will need to be prior authorized before it is received the office. Office will contact when it is available for insertion. All of her questions and concerns were addressed to the best of my ability and shared decision making. She is agreeable to the plan of care. This note is constructed using voice recognition software. While every effort has been made to ensure accuracy, construction and maintenance inspector errors may have been included. Orders: Orders AMB HCG Urine Test Today Z32.02 - Encounter for test, result negative Coding Level of Care Code Est Pt Level 3 (02734) Diagnoses Counseling for initiation of control method Z30.
== END 2023-09-08 16:02 | disposition home or self-care (01) ==
LOC: HO.HWS 15:24
PROVIDERS: PCP Physician Assistant; Visit Provider Advanced Practice Midwife
DX: Z30.09 Encounter for other general counseling and advice on contraception (principal); Z32.02 Encounter for pregnancy test, result negative
CPT/HCPCS: 99213

== ENCOUNTER → 2023-09-08 15:24 | Outpatient (BNVA) | payer MEDICARE, MEDICAID, SELFPAY | PROVIDERS: PCP Physician Assistant; Visit Provider Advanced Practice Midwife | DX: Z30.09 Encounter for other general counseling and advice on contraception (principal); Z32.02 Encounter for pregnancy test, result negative | CPT/HCPCS: 81025; 99212 ==

== ENCOUNTER 2023-09-22 11:10 | Outpatient (REF) | payer MEDICARE, MEDICAID, SELFPAY ==
[2023-09-22 12:48] LABS: Appearance Urine Clear; Color Urine Yellow; Glucose Urine UA Negative (Negative); Leukocyte Esterase Urine Small (1+) (Negative); Nitrite Urine Negative (Negative); PH 5.5 (5.0-9.0); UMIC TRIGGER UACC YES; Urine Blood Large (3+) (Negative); Urine Ketones Negative (Negative); Urine Protein Negative (Neg-Trace)
[2023-09-22 13:04] LABS: Bacteria Urine Trace (None Seen); Hyaline Casts Urine 0-2 /LPF (0-2); RBC Urine >20 /HPF (0-2); UACC Culture Trigger YES; WBC Urine 0-5 /HPF (0-5)
== END 2023-09-22 11:11 | disposition home or self-care (01) ==
LOC: HO.LAB 11:10
PROVIDERS: PCP Physician Assistant; Visit Provider Physician Assistant
DX: R39.9 Unspecified symptoms and signs involving the genitourinary system (principal)
CPT/HCPCS: 81001; 87086

== ENCOUNTER 2023-11-23 13:58 | Outpatient (AMB) | payer MEDICARE, MEDICAID, SELFPAY ==
[2023-11-23 14:17] VITALS: BP 126/82; BMI 32.9
--- NOTE | 2023-11-23 14:17 | MHC.OFFVIS ---
Vital Signs 11/23/23 14:17 Height 5 ft 9 in Weight 223 lb BMI 32.9 BP 126/82 Intake Visit Reasons: Nexplanon insertion Lap Hand Tool Required: No Information Interpreted: non-clinical & clinical Suppository Molding Machine Operator: Suppository Molding Machine Operator Present (Jose Luis) Accompanied by: case planner Allergies No Known Drug Allergies Allergy (Unknown, Verified 11/23/23 14:18) Unknown Is last menstrual period known: Yes Last menstrual period: 11/22/23 Post menopausal: No Patient : No HPI Comments Details: Patient is here today for Nexplanon insert. She is currently taking Nanci with no missed pills. UPT was negative today. She denies any risk factors to Nexplanon use including any history of deep vein thrombosis or pulmonary embolus. She is accompanied by Slime her care provider. [facility] Medical History Nexplanon in place Migraine without aura Annual physical exam Insomnia due to mental condition History of recurrent UTIs Bipolar disorder ADHD Surgical History Hx of tooth extraction Family History Father No problems noted. 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 Hearing needs: No Vision needs: Yes (Glasses) Female Reproductive History Menstrual Age of Menarche: 13 Date of last menstrual period: 11/22/23 control method: none and implanted (Nexplanon left arm 11/23/2023) Review of Systems Const All systems reviewed & are unremarkable except as noted in HPI and below Endo Reports no additional complaints Physical Exam Vital Signs: Last Vital Signs BP 126/82 11/23/23 14:17 BMI result Body Mass Index 32.9 Const General: cooperative, healthy appearing and no acute distress Extrem Other: Left upper inner arm is clean free of skin rashes and tattoos. Psych Appearance: well kempt Attitude: cooperative Thought process: Normal thought process present Office Procedures Contraception Insert/Removal Details 80452 - Insertion Contraception Insert/Removal Details Details: The patient is here today for a Nexplanon insertion. She was counseled regarding the risks and benefits for the Nexplanon device. She denies any risks to . Anticipatory guidance for the insertion procedure was reviewed. The urine test is negative. The consent form was signed and the patient request that the Nexplanon device be placed today. Nexplanon Insertion Procedure: The patient was placed in a supine position with her non dominant left hand resting under her head. The insertion site was located: 8-10cm from the medial epicondyle notch of the humerus, posterior to the sulcus, between the triceps and biceps muscle. The area was cleansed with an alcohol prep and 3 ml of 1% Lidocaine on a 25 gauge needle and syringe was utilized for adequate anesthesia to the insertion site. After ascertaining adequate anesthesia, the area was prepped with Betadine solution. The Nexplanon device was removed from the manufacturers package and the implant was noted in the trocar canal. The trocar was inserted at a 30 degree angle and then lowered parallel to the skin for insertion into the subcutaneous space with counter traction. Direct pressure was applied to the insertion site for hemostasis, minimal bleeding was observed. Steri strips, Tegaderm covering, gauze pads, and Zahraa wrap dressing were secured with paper tape. The implant was palpable underneath the skin by myself and the patient. The patient tolerated the procedure well and left the office in good condition. Nexplanon Post-insertion Care: You can expect mild tenderness, swelling, and bruising from the area. If no allergies, you may use a mild over the counter analgesic like Tylenol or Advil (follow the manufacturers recommendations on dosing and frequency of use). Call the office if any symptoms and including: fever (over 100.4), flu like symptoms, signs of infection-redness, pus drainage, pain (beyond usual healing), for any medical changes, suspected , heavy or prolonged vaginal bleeding Seek emergent care in the Emergency department for: sudden visual loss, shortness of breath, severe headache that is not consistent with your usual headaches, heaviness, sharp or severe chest pains, coughing up of blood, persistent pain in one of your extremities, weakness or numbness in an arm, leg or face, tongue or pharynx, trouble swallowing, difficult speaking, hives and trouble breathing, yellowing of skin, whites or eyes, especially with tiredness, loss of appetite, dark colored urine, light colored bowel movements, swelling or tenderness of the abdomen. The Nexplanon does not protect you from STI's, use of condoms is advised. Discontinue [place] as of today. Use a back up method of contraception for 7 days if the device is not placed within the first 5 days of your menses cycle to prevent an unintended . Keep the pressure dressing on and clean and dry for 24 hours, then remove it. You may take the steri strips and Tegaderm off in 7days, or sooner if peeling off on its own. Schedule a office post insertion check up in 4-6 weeks. This note is constructed using voice recognition software. While every effort has been made to ensure accuracy, freight brakeman errors may have been included. 36452 - Insertion Office Meds Nexplanon 68 mg subdermal implant Performing Provider: Alma Jorge CNM [place] [facility] [place] [place] [facility] Administered by: JANET Yates on 11/23/23 14:51 Dose Route Admin Location Dispensed Lot Number Expiration Date [facility] [place] Career Consultant 1 implant subdermal [facility] [place] 501 1 implant [id number] 11/06/25 [id number] [employer] Results AMB Test Urine AMB Test Urine Negative Last Edit by JANET Yates on 11/23/23 14:51 Results Reviewed Results Reviewed: Laboratory Last Values Tst Clinic Negative 11/23/23 14:50 Assessment & Plan Assessment & Plan (1) Nexplanon insertion: Code(s): Z30.017 - Encounter for initial prescription of implantable subdermal contraceptive Plan See procedure notes. Orders: Orders AMB HCG Urine Test Today Z32.02 - Encounter for test, result negative AMB Nexplanon/Implanon Insertion - Patient Supply Today Z30.017 - Encounter for initial prescription of implantable subdermal contraceptive Medications: New Nexplanon (etonogestrel) 1 implant subdermal ONCE 1 ea 0RF NS Z30.017 - Encounter for initial prescription of implantable subdermal contraceptive Coding Level of Care Code Procedure Only Diagnoses Nexplanon insertion Z30.017 CPT Codes Details - Contraception: 23897 - Insertion ([id number]) Details - Contraception: 34292 - Insertion ([id number])
== END 2023-11-23 14:51 | disposition home or self-care (01) ==
PROVIDERS: PCP Physician Assistant; Visit Provider Advanced Practice Midwife
DX: Z30.017 Encounter for initial prescription of implantable subdermal contraceptive (principal); Z32.02 Encounter for pregnancy test, result negative
CPT/HCPCS: 11981

== ENCOUNTER → 2023-11-23 13:58 | Outpatient (BNVA) | payer MEDICARE, MEDICAID, SELFPAY | PROVIDERS: PCP Physician Assistant; Visit Provider Advanced Practice Midwife | DX: Z30.017 Encounter for initial prescription of implantable subdermal contraceptive (principal) | CPT/HCPCS: 11981; 81025; J7307 ==

== ENCOUNTER 2024-01-17 11:46 | Outpatient (AMB) | payer MEDICAID, SELFPAY ==
[2024-01-17 11:49] VITALS: BP 120/76; BMI 31.7
--- NOTE | 2024-01-17 11:49 | MHC.OFFVIS ---
Vital Signs 01/17/24 11:49 Height 5 ft 9 in Weight 215 lb BMI 31.7 BP 120/76 Intake Visit Reasons: Nexplanon Check Stock Ranch Supervisor: Stock Ranch Supervisor Present Allergies No Known Drug Allergies Allergy (Unknown, Verified 01/17/24 11:50) Unknown Is last menstrual period known: Yes HPI Comments Details: Patient is here today for a follow up per Nexplanon insertion for a postinsertion checkup. She is happy that she has not having any menstrual cycles. And she reports that the incision site has healed well and has no concerns. [facility] Medical History (Updated 11/23/23 @ 14:54 by Alma Jorge CNM) Nexplanon in place Migraine without aura Annual physical exam Insomnia due to mental condition History of recurrent UTIs Bipolar disorder ADHD Surgical History Hx of tooth extraction Family History Father No problems noted. 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 Psych Appearance: well kempt Attitude: cooperative Thought process: Normal thought process present Assessment & Plan Assessment & Plan (1) Surveillance of implantable subdermal contraceptive: Code(s): Z30.46 - Encounter for surveillance of implantable subdermal contraceptive Plan Advised to monitor her menstrual cycles and report any concerns. Encouraged to always use condoms for safe sex and protection of STDs. Annual exam scheduled for July of 2024. All of her questions and concerns were addressed to the best of my ability and shared decision making. She is agreeable to the plan of care. This note is constructed using voice recognition software. While every effort has been made to ensure accuracy, lens polisher errors may have been included. Coding Level of Care Code Est Pt Level 2 (27351) Diagnoses Surveillance of implantable subdermal contraceptive Z30.46
== END 2024-01-17 12:22 | disposition home or self-care (01) ==
PROVIDERS: PCP Physician Assistant; Visit Provider Advanced Practice Midwife
DX: Z30.46 Encounter for surveillance of implantable subdermal contraceptive (principal)
CPT/HCPCS: 99212

== ENCOUNTER → 2024-01-17 11:46 | Outpatient (BNVA) | payer MEDICARE, MEDICAID, SELFPAY | PROVIDERS: PCP Physician Assistant; Visit Provider Advanced Practice Midwife | DX: Z30.46 Encounter for surveillance of implantable subdermal contraceptive (principal) | CPT/HCPCS: 99212 ==

== ENCOUNTER 2024-05-08 10:35 | Outpatient (AMB) | payer MEDICARE, MEDICAID, SELFPAY ==
[2024-05-08 11:01] VITALS: BP 122/88; PULSE 102; O2SAT 98; BMI 30.7
--- NOTE | 2024-05-08 11:01 | MHC.PC.OV ---
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 Accompanied by: Program Allergies No Known Drug Allergies Allergy (Unknown, Verified 05/08/24 11:22) Unknown Medication List - Last Reconciled 05/08/24 by Christian Patiño PA-C acetaminophen 325 mg PO QID PRN citalopram (Celexa) 20 mg PO DAILY clonidine HCl 0.1 mg PO DAILY PRN dextroamphetamine-amphetamine 20 mg 1 tab PO DAILY diphenhydramine HCl (Banophen) 25 mg PO DIRECTED 90 days fluticasone propionate 50 mcg/actuation (Flonase Allergy Relief) 1 spray intranasal DAILY 30 days hydroxyzine HCl 50 mg PO ONCE loratadine 10 mg PO DAILY 90 days melatonin 6 mg PO DAILY norethindrone (contraceptive) 0.35 mg PO DAILY riboflavin (vitamin B2) (Vitamin B-2) 100 mg PO DAILY 90 days trazodone 25 mg PO BEDTIME Tobacco use date assessed: 05/04/23 Dental Screening Dental Screen Date: 05/04/23 HPI ANNUAL HPI Details Patient is a 28-year-old female here today for an annual physical.? Patient has past medical history significant for anxiety depression, obesity, allergic rhinitis,migraines, ADHD, Bipolar disorder,? asthma. . Allergies:? Has been fairly well controlled with use Benadryl nightly.? She reports she still has nasal congestion itchy eyes at times.. .. Asthma: Has been well controlled with only p.r.n. use of her albuterol inhaler. Has been controlling her allergies. She denies any nighttime awakenings with asthma symptoms are recent asthma exacerbations. .. Bipolar disorder, ADHD:? Patient is followed by mental therapist and a psychiatrist who prescribes her mental health medications.? Continues on stimulant ADHD medication and seem still hyperactive. She is considering changing her psychiatrist as they will increase stimulant medication. Smoker: Patient does understand she needs to quit smoking and has been reducing her smoking now only smokes 3 cigarettes per day. Offer nicotine replacement though she declines my offers. .. Obesity: HAS LOST A SIGNIFICANT AMOUNT OF WEIGHT SINCE LAST VISIT BY BEING MORE PHYSICALLY ACTIVE AND REDUCING SUGAR IN HER DIET. Also now off of Depo injections which has helped significantly reduce her weight. She is still has had trouble losing weight over the last few months even with more physical activity and better eating habits. She is interested in starting Wegovy to reduce her weight below obesity level. ... Migraines: She reports her migraines are still evident and has 1 bad migraine a month. She does use Fioricet which she has found to be very helpful. Imitrex was not so helpful. 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 Vaccine: Up-to-date with flu, UTD with COVID vaccine , up-to-date with Tdap, needs pneumonia vaccine PFSH Medical History Insomnia Nexplanon in place Migraine without aura Annual physical exam Insomnia due to mental condition History of recurrent UTIs Bipolar disorder ADHD Surgical History Hx of tooth extraction Family History Father No problems noted. 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 Hearing needs: No Vision needs: Yes (Glasses) Female Reproductive History Menstrual Age of Menarche: 13 Questionnaire Thrive Questionnaire Date Thrive assessed: 05/04/23 I am a: Patient What is your living situation today?: I choose not to answer this question Within the past 12 months, did the food you bought not last and you didn't have the money to get more?: I choose not to answer this question Within the past 12 months, did you worry whether your food would run out before you got money to buy more?: I choose not to answer this question Do you have trouble paying for medicines?: I choose not to answer this question Do you have trouble getting transportation to medical appointments?: I choose not to answer this question Do you have trouble paying your heating and electricity bill?: I choose not to answer this question Do you have trouble taking care of your child, family member or friend?: I choose not to answer this question Do you have trouble with day-to-day activities such as bathing, preparing meals, shopping, managing finances, etc.?: I choose not to answer this question Are you currently unemployed and looking for a job?: I choose not to answer this question Are you interested in more education?: I choose not to answer this question Please select the resources that you would like help with: None Currently or been in a relationship where the following occur: I choose not to answer THRIVE Score: 0 AUDIT C Alcohol Use Questionnaire (AUDIT-C) 1. How often do you have a drink containing alcohol?: Never Total Score: 0 JYOTI-7 AMB Questionnaire JYOTI-7 Date JYOTI - 7 assessed: 05/04/23 Feeling nervous, anxious, or on edge: 0 = Not at all Not being able to stop or control worryin = Not at all Worrying too much about different things: 0 = Not at all Trouble relaxin = Not at all Being so restless that it is hard to sit still: 0 = Not at all Becoming easily annoyed or irritable: 0 = Not at all Feeling afraid as if something awful might happen: 0 = Not at all Total JYOTI-7 score (0-4 normal; 5-9 mild; 10-14 moderate; 15-21 severe): 0 Source: Developed by Drs. Leland Marcos, Ginger Smallwood, Cameron Fontanez and colleagues, with an educational shahnaz from [employer]. Review of Systems Const Denies body aches, Denies chills, Denies excessive sweating, Denies fatigue, Denies fever(s) and Denies headache(s) Eyes Denies blurry vision ENT Denies dysphagia, Denies vertigo, Denies dizziness, Denies headache(s), Denies hearing loss and Denies tinnitus Card Denies chest pain, Denies chest pain with activity, Denies syncope, Denies irregular heart rhythm and Denies dyspnea Resp Denies chest congestion, Denies cough, Denies hemoptysis, Denies dyspnea and Denies wheezing GI Denies abdominal pain, Denies melena, Denies hematochezia, Denies coffee ground emesis, Denies dysphagia, Denies diarrhea, Denies nausea and Denies vomiting Denies urinary frequency, Denies dysuria, Denies urinary hesitancy and Denies urinary urgency Musc Denies arthralgias, Denies limited range of motion, Denies muscle cramps and Denies muscle weakness Skin/Breast Denies rash and Denies skin ulcer Neuro Denies Abnormal speech present, Denies confusion, Denies vertigo, Denies dizziness, Denies syncope, Denies headache(s), Denies memory loss and Denies seizure-like activity Psych Denies anxiety, Denies confusion, Denies depression, Denies memory loss, Denies panic attacks and Denies paranoia Endo Denies excessive sweating, Denies fatigue, Denies flushing, Denies polydipsia and Denies polyuria Aller/Immun Denies wheezing Physical exam (Primary Care) Vital Signs: Last Vital Signs Pulse 102 H 05/08/24 11:01 BP 122/88 05/08/24 11:01 Pulse Ox 98 05/08/24 11:01 Oxygen Delivery Method Room Air 05/08/24 11:01 BMI result Body Mass Index 30.7 BMI Assessment/Plan discussion: High BMI High, discussed plan: lifestyle, weight reduction, dietary and physical activity Tobacco/Smoking Status: Tobacco use Status Tobacco use date assessed 05/04/23 05/08/24 11:02 Patient Tobacco Use Status Current everyday Tobacco 05/08/24 11:02 Tobacco use type Cigarette 05/08/24 11:02 e-Cigarette/Vaping Use Never Used 05/08/24 11:02 Are you ready to quit: Yes Tobacco cessation counseling provided: Yes Items discussed: Nicotine replacement Relapse Prevention: discussed the importance of a supportive environment, discussed negative mood or depression after quitting, weight gain after smoking is common and discussed dietary, exercise and/or lifestyle changes Number of minutes spent counselin CPT code: 91293 - 4-10 Minutes Thrive Assessment: Date of Thrive Assessment Date Thrive assessed 05/04/23 05/08/24 11:02 Currently or been in a relationship where the following occur: I choose not to answer Const General: cooperative, comfortable, no acute distress, alert and awake; No confusion Orientation/consciousness: oriented to person, oriented to place, patient oriented x3 and No confusion HENMT Head: Yes normocephalic Ears: external ears normal and TM's normal bilaterally Face and sinus: No sinus tenderness Mouth: Normal oral and palatal mucosa present and tongue normal Teeth and gingiva: dentition normal and gingiva normal Throat: Yes posterior oropharynx normal, Yes tonsils normal and Yes uvula midline Eyes Conjunctivae: conjunctivae normal Sclerae: sclerae normal Pupils: Equal, round and reactive pupils present EOM: EOMs intact bilaterally Direct Ophthalmoscopy: No no photophobia Neck Neck: Yes no lymphadenopathy, No tender and Yes no JVD Thyroid: Thyroid normal Carotids: no bruits Chest Chest palpation & inspection: no tenderness Resp Effort & Inspection: normal respiratory effort, no audible wheezes, not labored and no stridor Auscultation: no crackles, no rales, no rhonchi and no wheezes Cardio Jugular venous distension: no JVD Rate: regular rate, not bradycardic and not tachycardic Rhythm: regular rhythm Bruits: no carotid bruits Peripheral pulses: Peripheral pulses 2+ throughout GI Inspection: Yes normal to inspection, No abdominal wall ecchymosis and No visible herniation Palpation (GI): Soft to palpation, nontender, no guarding, not rigid and No hepatosplenomegaly present Auscultation: normoactive bowel sounds General: Yes no CVA tenderness Back/Spine/Pelvis Back: no CVA tenderness and No back tenderness Cervical Spine: cervical ROM normal Thoracic/Lumbar Spine: thoracic and lumbar spine normal to inspection, straight leg raise negative bilaterally, No thoraco-lumbar ROM limited and No lumbar spinal tenderness Skin Lesions: no lesions Rashes: no rashes Wounds: no wounds Neuro General: oriented to person, oriented to place, patient oriented x3, CN's II-XI intact bilaterally and No confusion Cranial nerves: Yes Equal, round and reactive pupils present and Yes Normal accommodation reflex present Cognition (Neuro): normal cognition Speech: No Abnormal speech present Gait exam (Neuro): Normal gait present Motor exam (neuro): 5/5 motor strength present throughout Extrem Right upper extremity: full ROM; no cyanosis Left upper extremity: full ROM; no cyanosis Right lower extremity: no edema Left lower extremity: no edema Psych Appearance: grossly normal Mental Status: mental status grossly normal Affect: normal affect Attitude: cooperative Thought process: Normal thought process present Office Procedures Flu Questionnaire Does the patient have a severe egg allergy?: No Immunizations Fluarix Triv [id number] (PF) 45 mcg (15 mcg x 3)/0.5 mL IM syringe Performing Provider: Christian Patiño PA-C [facility] Documented (not given) by: MARIO Tatum on 05/08/24 11:10 Reason Not Given: Received Previously Coding Level of Care Code Est Pt Prev Care 18-39y(24333) Diagnoses Annual physical exam Z00.00 Primary insomnia F51.01 Insomnia type: primary Anxiety and depression F41.9; F32.A Class 1 obesity E66.811 Migraine without aura and without status migrainosus, not intractable G43.009 Intractability: not intractable Status migrainosus presence: without status migrainosus Attention deficit hyperactivity disorder (ADHD), unspecified ADHD type F90.9 Attention deficit-hyperactivity disorder type: unspecified Smoker F17.200 Facial skin lesion L98.9 Additional Codes Vital Signs *Quality* - CPT code: 22155 - 4-10 Minutes ([id number]) Assessment & Plan Assessment & Plan (1) Annual physical exam: Code(s): Z00.00 - Encounter for general adult medical examination without abnormal findings Category: Medical Plan: As per HPI (2) Insomnia: Code(s): G47.00 - Insomnia, unspecified Qualifiers: Insomnia type: primary Qualified Code(s): F51.01 - Primary insomnia Plan: Patient reports she has been sleeping much better. Does use trazodone at night with good effect. Continues to follow a mental health therapist and a psychiatrist who manage her mental health medications. (3) Anxiety and depression: Code(s): F41.9 - Anxiety disorder, unspecified; F32.A - Depression, unspecified Plan: Patient reports her mental health has been much better as of late. She continues on SSRI therapy, clonidine and trazodone all managed by her psychiatrist. (4) Class 1 obesity: Code(s): E66.811 - Obesity, class 1 Category: Medical Plan: Patient does understand her BMI is remains above 30. Has lost weight since last office visit largely due to being off of Depo-Provera. She still has felt she has plateaued with her weight loss and would like to start Wegovy to help her lose more weight. She has a goal weight of 150 lb. (5) Migraine without aura: Code(s): G43.009 - Migraine without aura, not intractable, without status migrainosus Category: Medical Qualifiers: Intractability: not intractable Status migrainosus presence: without status migrainosus Qualified Code(s): G43.009 - Migraine without aura, not intractable, without status migrainosus Plan: Patient reports her migraines have been much better. Does use vitamin B2 on a daily basis. (6) ADHD: Code(s): F90.9 - Attention-deficit hyperactivity disorder, unspecified type Category: Medical Qualifiers: Attention deficit-hyperactivity disorder type: unspecified Qualified Code(s): F90.9 - Attention-deficit hyperactivity disorder, unspecified type Plan: Patient followed by Psychiatry and continues on Adderall with good effect on her attention and focus. Still seems a bit hyperactive and impulsive. (7) Smoker: Code(s): F17.200 - Nicotine dependence, unspecified, uncomplicated Category: Social Hx Plan: Patient does understand she needs to quit smoking in has found it very difficult to do so. She reports she has reduced her smoking a lot lately. (8) Facial skin lesion: Code(s): L98.9 - Disorder of the skin and subcutaneous tissue, unspecified Category: Medical Plan: Patient has a large benign-appearing skin lesion on her face. She would like removal. Will refer to plastic surgery for removal Orders: Orders Influenza [id number] Immunization 05/08/24 Christian Patiño PA-C Z23 - Encounter for immunization Comprehensive [place]. Panel Fast 05/08/24 Christian Patiño PA-C Z13.1 - Encounter for screening for diabetes mellitus Complete Blood Count no Diff 05/08/24 Christian Patiño PA-C Z13.1 - Encounter for screening for diabetes mellitus Referrals Plastic Surgery Referral Christian Patiño PA-C L98.9 - Disorder of the skin and subcutaneous tissue, unspecified Medications: New semaglutide (weight loss) (Wegovy) administer weeks 1 through 4 of therapy 0.25 mg (0.5 mL) subcut QWEEK 4 weeks 2 mL 0RF Christian Patiño PA-C E66.811 - Obesity, class 1 Changed From melatonin 5 mg PO DAILY 30 caps 0RF G47.00 - Insomnia, unspecified To melatonin 6 mg PO DAILY G47.00 - Insomnia, unspecified Abi Palma NP Refilled diphenhydramine HCl (Banophen) 25 mg PO DIRECTED 90 days 90 caps 2RF Christian Ptaiño PA-C T78.40XS - Allergy, unspecified, sequela riboflavin (vitamin B2) (Vitamin B-2) 100 mg PO DAILY 90 days 90 tabs 2RF Christian Patiño PA-C G43.009 - Migraine without aura, not intractable, without status migrainosus
== END 2024-05-08 11:41 | disposition home or self-care (01) ==
LOC: HO.HMCH 10:36
PROVIDERS: PCP Physician Assistant; Visit Provider Physician Assistant
DX: Z00.00 Encounter for general adult medical examination without abnormal findings (principal); F51.01 Primary insomnia; F41.9 Anxiety disorder, unspecified; F32.A Depression, unspecified; E66.811 Obesity, class 1; Z68.30 Body mass index [BMI] 30.0-30.9, adult; G43.009 Migraine without aura, not intractable, without status migrainosus; F90.9 Attention-deficit hyperactivity disorder, unspecified type; F17.210 Nicotine dependence, cigarettes, uncomplicated; L98.9 Disorder of the skin and subcutaneous tissue, unspecified

== ENCOUNTER → 2024-05-08 10:35 | Outpatient (BNVA) | payer MEDICARE, MEDICAID, SELFPAY | PROVIDERS: PCP Physician Assistant; Visit Provider Physician Assistant | DX: Z00.01 Encounter for general adult medical examination with abnormal findings (principal); F51.01 Primary insomnia; F41.9 Anxiety disorder, unspecified; F32.A Depression, unspecified; E66.811 Obesity, class 1; G43.009 Migraine without aura, not intractable, without status migrainosus; F90.9 Attention-deficit hyperactivity disorder, unspecified type; L98.9 Disorder of the skin and subcutaneous tissue, unspecified; Z71.6 Tobacco abuse counseling | CPT/HCPCS: 90471; 96127; 99395 ==

== ENCOUNTER 2024-06-26 10:01 | Outpatient (AMB) | payer MEDICARE, MEDICAID, SELFPAY ==
[2024-06-26 10:14] VITALS: BP 110/72; PULSE 86; O2SAT 98; BMI 31.3
--- NOTE | 2024-06-26 10:14 | MHC.PC.OV ---
Vital Signs 06/26/24 10:14 Height 5 ft 9 in Weight 212 lb 2 oz BMI 31.3 BP 110/72 Blood Pressure Location Lt brachial Position Sitting Pulse 86 Pulse Source Pulse Oximeter Pulse Oximetry (%) 98 Oxygen Delivery Method Room Air Intake Visit Reasons: 6 week f/u Community Living Specialist Required: No Accompanied by: Slime Alvarado Allergies No Known Drug Allergies Allergy (Unknown, Verified 06/26/24 10:32) Unknown Medication List - Last Reconciled 06/26/24 by Christian Patiño PA-C acetaminophen 325 mg PO QID PRN citalopram (Celexa) 20 mg PO DAILY clonidine HCl 0.1 mg PO DAILY PRN dextroamphetamine-amphetamine 20 mg 1 tab PO DAILY diphenhydramine HCl (Banophen) 25 mg PO DIRECTED 90 days fluticasone propionate 50 mcg/actuation (Flonase Allergy Relief) 1 spray intranasal DAILY 30 days hydroxyzine HCl 50 mg PO ONCE loratadine 10 mg PO DAILY 90 days melatonin 6 mg PO DAILY norethindrone (contraceptive) 0.35 mg PO DAILY riboflavin (vitamin B2) (Vitamin B-2) 100 mg PO DAILY 90 days semaglutide (weight loss) (Wegovy) 0.25 mg (0.5 mL) subcut QWEEK 4 weeks trazodone 25 mg PO BEDTIME Tobacco use date assessed: 05/04/23 Dental Screening Dental Screen Date: 05/04/23 HPI 6 week f/u HPI Details Patient is a 28-year-old female here today for follow-up visit. At last visit we discussed patient's weight and she was very interested in starting a GLP 1 to help her reduce her weight below obesity BMI level. Unfortunately Wegovy it was not covered by her insurance. Will try to reach send script to get coverage. She also reports having a upper respiratory infection recently to which she was able to recover on her own. She continues with left ear congestion though feeling much better. [facility] Medical History Insomnia Nexplanon in place Migraine without aura Annual physical exam Insomnia due to mental condition History of recurrent UTIs Bipolar disorder ADHD Surgical History Hx of tooth extraction Family History Father No problems noted. 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 Hearing needs: No Vision needs: Yes (Glasses) Female Reproductive History Menstrual Age of Menarche: 13 Questionnaire Thrive Questionnaire Date Thrive assessed: 05/08/24 I am a: Patient What is your living situation today?: I choose not to answer this question Within the past 12 months, did the food you bought not last and you didn't have the money to get more?: I choose not to answer this question Within the past 12 months, did you worry whether your food would run out before you got money to buy more?: I choose not to answer this question Do you have trouble paying for medicines?: I choose not to answer this question Do you have trouble getting transportation to medical appointments?: I choose not to answer this question Do you have trouble paying your heating and electricity bill?: I choose not to answer this question Do you have trouble taking care of your child, family member or friend?: I choose not to answer this question Do you have trouble with day-to-day activities such as bathing, preparing meals, shopping, managing finances, etc.?: I choose not to answer this question Are you currently unemployed and looking for a job?: I choose not to answer this question Are you interested in more education?: I choose not to answer this question Please select the resources that you would like help with: None Currently or been in a relationship where the following occur: I choose not to answer THRIVE Score: 0 JYOTI-7 AMB Questionnaire JYOTI-7 Date JYOTI - 7 assessed: 05/04/23 Source: Developed by Drs. Leland Marcos, Ginger Smallwood, Cameron Fontanez and colleagues, with an educational shahnaz from [employer]. Review of Systems Const Denies headache(s) Eyes Denies loss of vision ENT Denies vertigo, Denies dizziness, Denies headache(s) and Denies sore throat Card Denies chest pain, Denies leg edema and Denies lightheadedness Resp Denies cough, Denies hemoptysis and Denies wheezing GI Denies abdominal pain, Denies melena, Denies constipation, Denies diarrhea and Denies vomiting Denies urinary frequency, Denies dysuria and Denies urinary urgency Musc Denies arthralgias, Denies joint swelling, Denies numbness and Denies tingling Neuro Denies Abnormal speech present, Denies behavioral changes, Denies vertigo, Denies dizziness, Denies headache(s), Denies loss of vision, Denies memory loss, Denies numbness and Denies tingling Psych Denies anxiety, Denies behavioral changes, Denies depression, Denies memory loss and Denies panic attacks Oziel/Lymph Denies easy bleeding and Denies easy bruising Aller/Immun Denies wheezing Physical exam (Primary Care) Vital Signs: Last Vital Signs Pulse 86 06/26/24 10:14 BP 110/72 06/26/24 10:14 Pulse Ox 98 06/26/24 10:14 Oxygen Delivery Method Room Air 06/26/24 10:14 BMI result Body Mass Index 31.3 BMI Assessment/Plan discussion: High BMI High, discussed plan: lifestyle, weight reduction, dietary and physical activity Tobacco/Smoking Status: Tobacco use Status Tobacco use date assessed 05/04/23 06/26/24 10:19 Patient Tobacco Use Status Current everyday Tobacco 06/26/24 10:19 Tobacco use type Cigarette 06/26/24 10:19 e-Cigarette/Vaping Use Never Used 06/26/24 10:19 Thrive Assessment: Date of Thrive Assessment Date Thrive assessed 05/08/24 06/26/24 10:19 Currently or been in a relationship where the following occur: I choose not to answer Const General: healthy appearing, no acute distress, alert and awake Nutritional Appearance: well nourished Orientation/consciousness: oriented to person, oriented to place and oriented to time HENMT Ears: TM's normal bilaterally General nose exam: Normal nasal mucous membranes and turbinates present Eyes Conjunctivae: conjunctivae normal Sclerae: sclerae normal Pupils: Equal, round and reactive pupils present Neck Neck: Yes no lymphadenopathy and Yes no JVD Thyroid: Thyroid normal Carotids: no bruits Resp Effort & Inspection: normal respiratory effort and not tachypneic Auscultation: no crackles, no rales, no rhonchi and no wheezes Cardio Rate: regular rate Rhythm: regular rhythm Heart sounds: no murmurs and normal S1 and S2 GI Palpation (GI): Soft to palpation, nontender, no hepatomegaly and no splenomegaly Auscultation: normal bowel sounds Skin General skin exam: no rashes or lesions noted and dry skin Neuro General: oriented to person, oriented to place and oriented to time Cranial nerves: Yes Equal, round and reactive pupils present Speech: No Abnormal speech present Gait exam (Neuro): Normal gait present Motor exam (neuro): no tremor noted Extrem Right upper extremity: full ROM Left upper extremity: full ROM Right lower extremity: full ROM; no edema Left lower extremity: full ROM; no edema Psych Mental Status: mental status grossly normal Speech and movement: Normal speech and movement present Affect: normal affect Attitude: cooperative Thought process: Normal thought process present Coding Level of Care Code Est Pt Level 3 (57709) Diagnoses Class 1 obesity E66.811 Assessment & Plan Assessment & Plan (1) Class 1 obesity: Code(s): E66.811 - Obesity, class 1 Category: Medical Plan: Patient does understand her BMI is remains above 30. Has lost weight since last office visit largely due to being off of Depo-Provera. She has been working on being more physically active and adapting to much better eating habits. She still has felt she has plateaued with her weight loss and would like to start Wegovy to help her lose more weight. Unfortunately Wegovy was not approved by her insurance thus will try again to see if we can get insurance approval. If not will try an alternative GLP 1 (zepbound). Patient's goal weight is to be 150 lb. Medications: Refilled semaglutide (weight loss) (Wegovy) administer weeks 1 through 4 of therapy 0.25 mg (0.5 mL) subcut QWEEK 2 mL 0RF 4 weeks E66.811 - Obesity, class 1
== END 2024-06-26 10:46 | disposition home or self-care (01) ==
PROVIDERS: PCP Physician Assistant; Visit Provider Physician Assistant
DX: E66.811 Obesity, class 1 (principal); Z68.31 Body mass index [BMI] 31.0-31.9, adult

== ENCOUNTER → 2024-06-26 10:01 | Outpatient (BNVA) | payer MEDICARE, MEDICAID, SELFPAY | PROVIDERS: PCP Physician Assistant; Visit Provider Physician Assistant | DX: E66.811 Obesity, class 1 (principal) | CPT/HCPCS: 99212 ==

== ENCOUNTER 2024-07-23 11:01 | Outpatient (AMB) | payer MEDICARE, MEDICAID, SELFPAY ==
--- NOTE | 2024-07-23 11:05 | MHC.OFFVIS ---
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 No monthly menses currently with the Nexplanon. Currently is sexually active. She denies vaginal itching and irritation. STI screening offered; she accepts. She tries to eat healthy and stays active with exercise. Denies family history of ovarian or colon cancer. FH breast cancer. Last pap smear 2023, negative. [facility] Medical History Insomnia Nexplanon in place Migraine without aura Annual physical exam Insomnia due to mental condition History of recurrent UTIs Bipolar disorder ADHD Surgical History Hx of tooth extraction Family History Father No problems noted. 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 Hearing needs: No Vision needs: Yes (Glasses) Female Reproductive History Menstrual Age of Menarche: 13 control method: implanted (Nexplanon 11/2023) Total pregnancies: 0 Date of last pap smear: 07/20/23 (neg) Review of Systems Const All systems reviewed & are unremarkable except as noted in HPI and below Reports as per HPI Eyes Reports no additional complaints ENT Reports no additional complaints Card Reports no additional complaints Resp Reports no additional complaints GI Reports as per HPI and Reports no additional complaints Reports as per HPI Musc Reports no additional complaints Skin/Breast Reports as per HPI Neuro Reports no additional complaints Psych Reports no additional complaints Endo Reports no additional complaints Oziel/Lymph Reports no additional complaints Aller/Immun Reports no additional complaints Physical Exam Vital Signs: Last Vital Signs BP 120/76 07/23/24 11:07 BMI result Body Mass Index 31.9 Const General: cooperative, healthy appearing, no acute distress, well developed and alert Orientation/consciousness: patient oriented x3 HEENT Head: Yes normal to inspection Eyes General: appearance normal, both eyes and all related structures Neck Neck: Yes normal visual inspection Thyroid: Thyroid normal Chest Chest palpation & inspection: normal inspection of the chest and other (no puckering, dimpling, peau de orange, retraction, discharge, masses) Breast/axilla inspection: normal inspection of the breasts Breast/axilla palpation: normal palpation of the breasts Resp Effort & Inspection: normal respiratory effort GI Inspection: Yes normal to inspection Palpation (GI): Soft to palpation Rectal Exam - Female: deferred General: Yes bladder normal to palpation External Female Exam: normal external appearance and normal appearance of the urethra Speculum Exam - Vagina: normal appearance of the vagina, normal palpation and normal vaginal discharge Speculum Exam - Cervix: normal appearance of the cervix, normal palpation and Other cervical findings present (Bled slightly from Pap) Bimanual exam- vagina & uterus: normal bimanual exam, normal palpation, uterine size normal, bladder normal to palpation, normal palpation and non-tender Bimanual Exam- Adnexa, other: no masses Skin General skin exam: no rashes or lesions noted Rashes: no rashes Neuro General: patient oriented x3 Cognition (Neuro): normal cognition Extrem General: Yes normal to inspection Psych Attitude: cooperative Thought process: Normal thought process present Results AMB Test Urine AMB Test Urine Negative Last Edit by JANET Rivera on 07/23/24 11:58 Assessment & Plan Assessment & Plan (1) Encounter for well woman exam with routine gynecological exam: Code(s): Z01.419 - Encounter for gynecological examination (general) (routine) without abnormal findings Category: Medical Plan Discussed: Current recommendations for pap smears per ASCCP guidelines. Breast awareness and periodic breast exams. Maintain a healthy lifestyle including a well balanced diet and routine exercise. Use condoms for STI and prevention. Discuss BRCA testing patient wants to talk to her mom and will let me know if she wants to have a referral for testing. Patient verbalizes understanding and agrees to the plan of care. She was given opportunity to ask questions and all questions were answered to the best of my ability. RTO in one year for annual service order dispatcher chief examination. This note is constructed using voice recognition software. While every effort has been made to ensure accuracy, organic extractions technician errors may have been included. Orders: Orders Hepatitis C Antibody Reflex Today Z20.2 - Contact with and (suspected) exposure to infections with a predominantly sexual mode of transmission Hepatitis B Core Antibody Today Z20.2 - Contact with and (suspected) exposure to infections with a predominantly sexual mode of transmission HIV Ab/Ag Today Z20.2 - Contact with and (suspected) exposure to infections with a predominantly sexual mode of transmission Syphilis Screen Today Z20.2 - Contact with and (suspected) exposure to infections with a predominantly sexual mode of transmission AMB HCG Urine Test Today Z32.02 - Encounter for test, result negative Bacterial Vaginosis Panel Today Z20.2 - Contact with and (suspected) exposure to infections with a predominantly sexual mode of transmission CT NG by PCR Today Z20.2 - Contact with and (suspected) exposure to infections with a predominantly sexual mode of transmission HPV High risk Today Z01.419 - Encounter for gynecological examination (general) (routine) without abnormal findings Pap Smear Today Z01.419 - Encounter for gynecological examination (general) (routine) without abnormal findings Coding Level of Care Code Est Pt Prev Care 18-39y(68545) Diagnoses Encounter for well woman exam with routine gynecological exam Z01.419
[2024-07-23 11:07] VITALS: BP 120/76; BMI 31.9
== END 2024-07-23 11:45 | disposition home or self-care (01) ==
LOC: HO.HWS 11:01
PROVIDERS: PCP Physician Assistant; Visit Provider Advanced Practice Midwife
DX: Z01.419 Encounter for gynecological examination (general) (routine) without abnormal findings (principal); Z32.02 Encounter for pregnancy test, result negative
CPT/HCPCS: G0101; Q0091

== ENCOUNTER 2024-07-23 11:01 | Outpatient (REF) | payer MEDICARE, MEDICAID, SELFPAY ==
[2024-07-23 16:17] LABS: Bacterial Vaginosis PCR NEGATIVE (Negative); Candida Group PCR NOT DETECTED (Not Detect); Candida glab krusei PCR NOT DETECTED (Not Detect); Trichomonas vaginalis PCR NOT DETECTED (Not Detect)
== END 2024-07-23 11:02 | disposition home or self-care (01) ==
LOC: HO.LAB 11:01
PROVIDERS: PCP Physician Assistant; Visit Provider Advanced Practice Midwife
DX: Z13.89 Encounter for screening for other disorder (principal)
CPT/HCPCS: 81515

== ENCOUNTER 2024-07-23 11:56 | Outpatient (REF) | payer MEDICARE, MEDICAID, SELFPAY ==
[2024-07-23 13:10] LABS: HBc Num1 0.05 S/CO (0.00-0.79); HIV AB/AG Nonreactive (Nonreactive); HIV Num 1 0.05 S/CO (0.00-0.99); Hepatitis B Core Antibody Nonreactive (Nonreactive); ~HepC Num1 0.08 S/CO (0.00-0.79); ~Hepatitis C Antibody Nonreactive (Nonreactive)
[2024-07-23 13:28] LABS: Syphilis Screen Nonreactive (Nonreactive)
[2024-07-23 16:49] LABS: CT PCR NOT DETECTED (Not Detect.); NG PCR NOT DETECTED (Not Detect.)
[2024-07-24 11:21] LABS: HPV 16,18/45 See PAP report
[2024-07-24 11:26] LABS: HPV 16,18/45 See PAP report
== END 2024-07-23 11:57 | disposition home or self-care (01) ==
LOC: HO.LNP 11:56
PROVIDERS: Visit Provider Advanced Practice Midwife
DX: Z01.419 Encounter for gynecological examination (general) (routine) without abnormal findings (principal); Z20.2 Contact with and (suspected) exposure to infections with a predominantly sexual mode of transmission; Z32.02 Encounter for pregnancy test, result negative
CPT/HCPCS: 81025; 81515; 86704; 86780; 86803; 87389; 87491; 87591; 87626; 88175; G0101; Q0091

== ENCOUNTER 2025-05-14 11:21 | Outpatient (REF) | payer MEDICARE, MEDICAID, SELFPAY | END 2025-05-14 11:22 | disposition home or self-care (01) | LOC: HO.LNP 11:21 | PROVIDERS: PCP Physician Assistant; Visit Provider Physician Assistant | DX: R30.0 Dysuria (principal) | CPT/HCPCS: 81003; 87086; 90471; 90656; 96127; 99395 ==

== ENCOUNTER 2025-05-14 11:21 | Outpatient (AMB) | payer MEDICARE, MEDICAID, SELFPAY ==
--- NOTE | 2025-05-14 11:22 | MHC.PC.OV ---
Vital Signs 05/14/25 11:23 Height 5 ft 9 in Weight 216 lb 2 oz BMI 31.9 BP 124/76 Blood Pressure Location Lt brachial Position Sitting Pulse 86 Pulse Source Pulse Oximeter Temp 97.8 F Temp Source Temporal Artery Scan Pulse Oximetry (%) 96 Oxygen Delivery Method Room Air Intake Visit Reasons: Annual Exam Allergies No Known Drug Allergies Allergy (Unknown, Verified 05/14/25 11:44) Unknown Medication List - Last Reconciled 05/14/25 by Christian Patiño PA-C acetaminophen 325 mg PO QID PRN cetirizine 10 mg PO DAILY 90 days citalopram (Celexa) 20 mg PO DAILY clonidine HCl 0.1 mg PO DAILY PRN dextroamphetamine-amphetamine 20 mg 1 tab PO DAILY diphenhydramine HCl (Banophen) 25 mg PO DIRECTED 90 days etonogestrel (Nexplanon) subdermal fluticasone propionate 50 mcg/actuation (Flonase Allergy Relief) 1 spray intranasal DAILY 30 days hydroxyzine HCl 50 mg PO ONCE loratadine 10 mg PO DAILY 90 days Held on 11/11/24. Instructions: Doctor's Order melatonin 6 mg PO DAILY riboflavin (vitamin B2) (Vitamin B-2) 100 mg PO DAILY 90 days trazodone 25 mg PO BEDTIME Tobacco use date assessed: 05/14/25 Dental Screening Dental Screen Date: 05/14/25 Did you have a dental visit in the last 12 months?: Yes Did you have a dental problem in the last 6 months where you did not have access to dental care?: No Was dental information given to patient?: Patient has dentist HPI Annual Exam HPI Details Patient is a 29-year-old female here today for an annual physical.? Patient has past medical history significant for anxiety depression, obesity, allergic rhinitis,migraines, ADHD, Bipolar disorder,? asthma. Concern--> patient having signs and symptoms of urinary frequency and burning. Today in office urinalysis noted leukocytes. .. Former smoker: She reports having quit smoking five days ago and is experiencing significant cravings, particularly at work where she is exposed to the smell of nicotine from coworkers. Her prior smoking habit was about half a pack of cigarettes per day, and she has not been using any nicotine replacement therapy. . Allergies:? ? She reports that cetirizine has been much more effective for her allergies. .. Asthma: Has been well controlled with only p.r.n. use of her albuterol inhaler. Has been controlling her allergies. She denies any nighttime awakenings with asthma symptoms are recent asthma exacerbations. .. Class 1 obesity: Patient does understand her BMI is over 30 will continue working on being more physically active and adapting to better eating habits to reduce her weight .. Bipolar disorder, ADHD:? Patient is followed by mental therapist and a psychiatrist who prescribes her mental health medications.? Continues on stimulant ADHD medication and seem still hyperactive. She is considering changing her psychiatrist as they will increase stimulant medication. Smoker: Patient does understand she needs to quit smoking and has been reducing her smoking now only smokes 3 cigarettes per day. Offer nicotine replacement though she declines my offers. .. Class 1 Obesity: Has been able lose weight off of Depo injections. Continues to work on lifestyle and dietary modifications.. ... Migraines: She reports her migraines are still evident and has 1 bad migraine a month. She does use Fioricet which she has found to be very helpful. Imitrex was not so helpful. Project Manager/Design Manager: Patient is followed by Telegraph Office Manager and has gotten Pap. Vaccine: Up-to-date with flu, UTD with COVID vaccine , up-to-date with Tdap, UTD with PCV, Need FLu vaccine. [facility] Medical History (Updated 05/14/25 @ 14:19 by Christian Patiño PA-C) Insomnia Nexplanon in place Migraine without aura Annual physical exam Insomnia due to mental condition History of recurrent UTIs Bipolar disorder ADHD Surgical History Hx of tooth extraction Family History Father No problems noted. 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 1. Little interest or pleasure in doing things: not at all 2. Feeling down, depressed, or hopeless: not at all 3. Trouble falling or staying asleep, or sleeping too much: several days 4. Feeling tired or having little energy: several days 5. Poor appetite or overeating: several days 6. Feeling bad about yourself - or that you are a failure or have let yourself or your family down: not at all 7. Trouble concentrating on things, such as reading the newspaper or watching television: nearly every day 8. Moving or speaking so slowly that other people could have noticed. Or the opposite - being so fidgety or restless that you have been moving around a lot more than usual: not at all 9. Thoughts that you would be better off or of hurting yourself in some way: not at all Total score: 6 Depression Screening Interpretation: Positive Depression Screening Follow-up: Existing condition Depression Screening Done: Yes 56983 - PHQ-9 Billing: Yes Source: Developed by Drs. Leland Marcos, Ginger Smallwood, Cameron Fontanez and colleagues, with an educational shahnaz from [employer]. Thrive Questionnaire Date Thrive assessed: 05/14/25 I am a: Patient What is your living situation today?: I have a steady place to live Within the past 12 months, did the food you bought not last and you didn't have the money to get more?: Never true Within the past 12 months, did you worry whether your food would run out before you got money to buy more?: Never true Do you have trouble paying for medicines?: Yes Do you have trouble getting transportation to medical appointments?: No Do you have trouble paying your heating and electricity bill?: No Do you have trouble taking care of your child, family member or friend?: No Do you have trouble with day-to-day activities such as bathing, preparing meals, shopping, managing finances, etc.?: No Are you currently unemployed and looking for a job?: No Are you interested in more education?: No Please select the resources that you would like help with: None Currently or been in a relationship where the following occur: Controlled Emotionally THRIVE Score: 1 AUDIT C Alcohol Use Questionnaire (AUDIT-C) 1. How often do you have a drink containing alcohol?: Never 3. How often do you have six or more drinks on one occasion?: Never Total Score: 0 JYOTI-7 AMB Questionnaire JYOTI-7 Date JYOTI - 7 assessed: 05/14/25 Feeling nervous, anxious, or on edge: 3 = Nearly every day Not being able to stop or control worryin = Nearly every day Worrying too much about different things: 3 = Nearly every day Trouble relaxin = Nearly every day Being so restless that it is hard to sit still: 3 = Nearly every day Becoming easily annoyed or irritable: 3 = Nearly every day Feeling afraid as if something awful might happen: 0 = Not at all Total JYOTI-7 score (0-4 normal; 5-9 mild; 10-14 moderate; 15-21 severe): 18 Source: Developed by Drs. Leland Marcos, Ginger Smallwood, Cameron Fontanez and colleagues, with an educational shahnaz from [employer]. JYOTI-7 Assessment Billing JYOTI-7 Assessment Tool: JYOTI-7 Assessment 78489 Physical exam (Primary Care) Vital Signs: Last Vital Signs Temp 97.8 F 05/14/25 11:23 Pulse 86 05/14/25 11:23 BP 124/76 05/14/25 11:23 Pulse Ox 96 05/14/25 11:23 Oxygen Delivery Method Room Air 05/14/25 11:23 BMI result Body Mass Index 31.9 BMI Assessment/Plan discussion: High BMI High, discussed plan: lifestyle, weight reduction, dietary and physical activity Tobacco/Smoking Status: Tobacco use Status Tobacco use date assessed 05/14/25 05/14/25 11:29 Patient Tobacco Use Status Former Tobacco user 05/14/25 11:29 Tobacco use type Cigarette 05/14/25 11:29 e-Cigarette/Vaping Use Never Used 05/14/25 11:29 PHQ-9: PHQ-9 Score PHQ-9: Total score 6 05/14/25 12:06 Depression Screening Interpretation: Positive Depression Screening Follow-up: Existing condition Thrive Assessment: Date of Thrive Assessment Date Thrive assessed 05/14/25 05/14/25 11:29 Currently or been in a relationship where the following occur: Controlled Emotionally Office Procedures Flu Questionnaire Does the patient have a severe egg allergy?: No Does the patient have severe life threatening allergies?: No Does the patient have a fever or illness today?: No Has the patient ever had Guillain-Hillpoint Syndrome?: No Has the patient ever had any past reaction to a flu shot?: No Results AMB Urinalysis, Automated UA Leukoctes 15 Aleyda/uL Last Edit by Kelle Kate CMA on 05/14/25 11:39 UA Nitrite Negative Last Edit by Kelle Kate, ELLYN on 05/14/25 11:39 UA Urobilinogen 0.2 mg/dL Last Edit by Kelle Kate, ELLYN on 05/14/25 11:39 UA Protein 0 mg/dL Last Edit by Kelle Kate, ELLYN on 05/14/25 11:39 UA pH 6.0 Last Edit by Kelle Kate, ELLYN on 05/14/25 11:39 UA Blood 80 Heber/uL Last Edit by Kelle Kate, ELLYN on 05/14/25 11:39 UA Specific Simpson 1.025 Last Edit by Kelle Kate, ELLYN on 05/14/25 11:39 UA Ketone Negative Last Edit by Kelle Kate, ELLYN on 05/14/25 11:39 UA Bilirubin 0 mg/dL Last Edit by Kelle Kate, ELLYN on 05/14/25 11:39 UA Glucose 0 mg/dL Last Edit by Kelle Kate, ELLYN on 05/14/25 11:39 Immunizations Fluarix [id number] (PF) 45 mcg (15 mcg x 3)/0.5 mL IM syringe Performing Provider: Christian Patiño PA-C [facility] Administered by: Janet Cartwright CMA on 05/14/25 12:05 Dose Route Admin Location Dispensed Lot Number Expiration Date [facility] Office Workforce [employer]anner 0.5 mL IM Left Deltoid 0.5 mL [id number] 01/06/26 [id number] Shutl VIS Given Date VIS Provided VIS Publication Date 05/14/25 Single Vaccine 24 Eligibility Eligibility Date Funding Source Not [facility] Eligible 05/14/25 Private Results Reviewed Results Reviewed: Laboratory Last Values Urine pH (Auto) 6.0 05/14/25 11:30 Specific Simpson (Auto) 1.025 05/14/25 11:30 Urine Protein (Auto) 0 mg/dL 05/14/25 11:30 Glucose (UA)(Auto) 0 mg/dL 05/14/25 11:30 Urine Ketones (Auto) Negative 05/14/25 11:30 Urine Blood (Auto) 80 Heber/uL 05/14/25 11:30 Urine Nitrite (Auto) Negative 05/14/25 11:30 Urine Bilirubin (Auto) 0 mg/dL 05/14/25 11:30 Urine Urobilinogen (Auto) 0.2 mg/dL 05/14/25 11:30 Leukocyte Esterase (Auto) 15 Aleyda/uL 05/14/25 11:30 Coding Level of Care Code Est Pt Prev Care 18-39y(09754) Diagnoses Annual physical exam Z00.00 Anxiety and depression F41.9; F32.A Class 1 obesity E66.811 Migraine without aura and without status migrainosus, not intractable G43.009 Status migrainosus presence: without status migrainosus Intractability: not intractable Attention deficit hyperactivity disorder (ADHD), unspecified ADHD type F90.9 Attention deficit-hyperactivity disorder type: unspecified Former smoker Z87.891 Dysuria R30.0 Bipolar disorder, in partial remission, most recent episode mixed F31.77 Active/Remission status: in partial remission Most recent bipolar episode type: mixed Additional Codes JYOTI-7 Assessment Billing - JYOTI-7 Assessment Tool: JYOTI-7 Assessment 54927 ([id number]) PHQ-9 - 21068 - PHQ-9 Billing: Yes ([id number]) Assessment & Plan Assessment & Plan (1) Annual physical exam: Code(s): Z00.00 - Encounter for general adult medical examination without abnormal findings Category: Medical Plan: As per HPI (2) Anxiety and depression: Code(s): F41.9 - Anxiety disorder, unspecified; F32.A - Depression, unspecified Plan: Patient reports her mental health has been much better as of late. She continues on SSRI therapy, clonidine and trazodone all managed by her psychiatrist. (3) Class 1 obesity: Code(s): E66.811 - Obesity, class 1 Category: Medical Plan: Patient does understand her BMI is remains above 30. Has lost weight since last office visit largely due to being off of Depo-Provera. (4) Migraine without aura: Code(s): G43.009 - Migraine without aura, not intractable, without status migrainosus Category: Medical Qualifiers: Status migrainosus presence: without status migrainosus Intractability: not intractable Qualified Code(s): G43.009 - Migraine without aura, not intractable, without status migrainosus Plan: Patient reports her migraines have been much better. Does use vitamin B2 on a daily basis. (5) ADHD: Code(s): F90.9 - Attention-deficit hyperactivity disorder, unspecified type Category: Medical Qualifiers: Attention deficit-hyperactivity disorder type: unspecified Qualified Code(s): F90.9 - Attention-deficit hyperactivity disorder, unspecified type Plan: Patient followed by Psychiatry and continues on Adderall with good effect on her attention and focus. Still seems a bit hyperactive and impulsive. (6) Former smoker: Code(s): Z87.891 - Personal history of nicotine dependence Category: Social Hx Plan: Patient reports quitting cigarettes 5 days ago, she still has major cravings for nicotine. She is willing to try nicotine patches (7) Dysuria: Code(s): R30.0 - Dysuria Category: Medical Plan: Patient reports during her. She had discomfort when urinating. Today's in office urinalysis showing leukocytes. Her dysuria has resolved though was still like evaluation. Will send for urine culture to evaluate for UTI. (8) Bipolar disorder: Code(s): F31.9 - Bipolar disorder, unspecified Category: Medical Qualifiers: Active/Remission status: in partial remission Most recent bipolar episode type: mixed Qualified Code(s): F31.77 - Bipolar disorder, in partial remission, most recent episode mixed Plan: Continues to be managed by her psychiatrist. Orders: Orders AMB Urinalysis Automated Today Z13.9 - Encounter for screening, unspecified Comprehensive [place]. Panel Fast Today Z13.1 - Encounter for screening for diabetes mellitus Complete Blood Count no Diff Today Z13.1 - Encounter for screening for diabetes mellitus Influenza [id number] Immunization Today Z23 - Encounter for immunization Urine Culture Today R30.0 - Dysuria Medications: New nicotine 1 patch transdermal DAILY 14 ea 1RF 14 days F17.200 - Nicotine dependence, unspecified, uncomplicated Refilled cetirizine 10 mg PO DAILY 90 tabs 1RF allergy symptoms 90 days T78.40XS - Allergy, unspecified, sequela diphenhydramine HCl (Banophen) 25 mg PO DIRECTED 90 caps 2RF 90 days T78.40XS - Allergy, unspecified, sequela fluticasone propionate 50 mcg/actuation (Flonase Allergy Relief) administer into each nostril 1 spray intranasal DAILY 16 grams 6RF 30 days T78.40XS - Allergy, unspecified, sequela
[2025-05-14 11:23] VITALS: BP 124/76; PULSE 86; TEMP 36.6; O2SAT 96; BMI 31.9
--- OUTSIDE RECORDS SUMMARY | 2025-05-14 13:53 | XMS_ITS | Clinical Summary ---
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 Name Role Phone Unavailable Primary Care Provider Unavailabl e Social History Tobacco Use Types Packs/Day Years Used Date Smoking Tobacco: Never Assessed Comments Unknown Sex and Gender Information Value Date Recorded Sex Assigned at Not on file Legal Sex Female 8:48 PM EST Gender Identity Not on file Sexual Orientation Not on file Plan of Treatment Health Maintenance Due Date Last Done Comments DTaP,Tdap,and Td Vaccines (1 - Tdap) 2012 Hepatitis B Vaccines (1 of 3 - 19+ 3-dose series) 2012 Cervical Cancer Screening: P ap Smear 2014 HPV Vaccines (1 - 3-dose SCD M series) 2020 HIV Screening 08/04/2023 Hepatitis C Screening 08/04/2023 Social Influencers of Health Screening 08/04/2023 Depression Screening 07/10/2024 COVID-19 Vaccine (1 - 2023-2 5 season) 2025 Influenza Vaccine (#1) 2025 RSV Immunization Adult Patie nts (1 - 1-dose 75+ series) 2068 HIB Vaccines Aged Out No longer eligi ble based on patient's age to complete this topic Hepatitis A Vaccines Aged Out No long er eligible based on patient's age to complete this topic IPV Vaccines Aged Out No longer eligi ble based on patient's age to complete this topic MMR Vaccines Aged Out No longer eligi ble based on patient's age to complete this topic Meningococcal ACWY Vaccine Aged Out N o longer eligible based on patient's age to complete this topic Meningococcal B Vaccine Aged Out No l onger eligible based on patient's age to complete this topic Pneumococcal Vaccine: Pediat rics (0 to 5 Years) and At-Risk Patients (6 to 49 Years) Aged Out No longer eligible b ased on patient's age to complete this topic RSV Immunization Patients Un darrell 20 months Aged Out No longer eligible b ased on patient's age to complete this topic Varicella Vaccines Aged Out No longer eligible based on patient's age to complete this topic
== END 2025-05-14 12:56 | disposition home or self-care (01) ==
LOC: HO.HMCH 11:22
PROVIDERS: PCP Physician Assistant; Visit Provider Physician Assistant
DX: Z00.00 Encounter for general adult medical examination without abnormal findings (principal); F31.77 Bipolar disorder, in partial remission, most recent episode mixed; E66.811 Obesity, class 1; Z68.31 Body mass index [BMI] 31.0-31.9, adult; F41.9 Anxiety disorder, unspecified; G43.009 Migraine without aura, not intractable, without status migrainosus; F32.A Depression, unspecified; F90.9 Attention-deficit hyperactivity disorder, unspecified type; Z87.891 Personal history of nicotine dependence; R30.0 Dysuria; Z23 Encounter for immunization